=== PATIENT | female | born 1980 | race African-American/Black ===

== ENCOUNTER 2018-07-12 12:11 | Emergency (ER) | payer OTHER ==
[2018-07-12 12:19] VITALS: BP 119/75; PULSE 74; TEMP 98; BMI 32.0
[2018-07-12] MEDS ORDERED: ACETAMINOPHEN 325 MG TABLET (FP) PO ONE (13:33)
--- NOTE | 2018-07-12 13:39 | PDOC ---
History of Present Illness - General Chief Complaint: Headache Stated Complaint: HEADACHE Time Seen by Provider: 07/12/18 13:11 History Source: Patient Exam Limitations: Physical Impairment - History of Present Illness Initial Comments: 07/12/18 13:37 brought in by mom for c/o fever on thrusday no fever since and c/o headahce , no headache now. pt has history of seizures takes keppra (last took this AM) no seizure activity. no sore throat no abd pain or diarrhea. Pt has multiple cavaties, poor dentition has to have many teeth extracted as per mom. Timing/Duration: reports: episodic Severity: Yes: mild Past History - Past Medical History Allergies/Adverse Reactions: Allergies Allergy/AdvReac Type Severity Reaction Status Date / Time No Known Allergies Allergy Verified 07/12/18 12:19 Home Medications: Ambulatory Orders levETIRAcetam [Keppra -] 1,500 mg PO BID 07/12/18 COPD: No Seizures: Yes - Suicide/Smoking/Psychosocial Hx Smoking History: Never smoked Neuro Specific PMHX - Complaint Specific PMHX Glaucoma: No Herniated Disk: No Laminectomy: No Migraine: No Multiple Sclerosis: No Neuropathy: No TIA: No Other Neuro History: seizure disorder Review of Systems - Review of Systems Able to Perform ROS?: Yes Is the patient limited Israeli proficient: No Constitutional: No: Symptoms Reported HEENTM: No: Symptoms Reported Respiratory: No: Symptoms reported Cardiac (ROS): No: Symptoms Reported ABD/GI: No: Symptoms Reported : No: Symptoms Reported Musculoskeletal: No: Symptoms Reported Integumentary: No: Symptoms Reported *Physical Exam - Vital Signs Last Vital Signs Temp Pulse Resp BP Pulse Ox 98 F 74 18 119/75 99 07/12/18 12:16 07/12/18 12:16 07/12/18 12:16 07/12/18 12:16 07/12/18 12:16 - Physical Exam General Appearance: Yes: Nourished, Appropriately Dressed HEENT: positive: EOMI, YENI, Normal ENT Inspection, TMs Normal, Pharynx Normal, Other (multiple missing teeth poor dentition,no abscess or evidence of infection to the gum ) Neck: positive: Supple Respiratory/Chest: positive: Lungs Clear, Normal Breath Sounds Cardiovascular: positive: Regular Rhythm, Regular Rate Musculoskeletal: positive: Normal Inspection Extremity: positive: Normal Capillary Refill, Normal Inspection, Normal Range of Motion Integumentary: positive: Normal Color, Dry, Warm Neurologic: positive: Alert, Normal Mood/Affect Medical Decision Making - Medical Decision Making 07/12/18 13:41 cc: c/o headache earlier this am no headache now mom concerned about possible dental infection no sore throat neg neck pain no rigididty FROM of the neck will give tylenol now strict follow up tomorrow with PMD at [facility] *DC/Admit/Observation/Transfer Diagnosis at time of Disposition: Worried well, Dental cavities - Discharge Dispostion Disposition: HOME Condition at time of disposition: Good - Referrals - Patient Instructions Additional Instructions: please follow with your doctor tomorrow or Friday if the symptoms continue or worsen drink pleanty of water to stay well hydrated return if any worsening symptoms - Post Discharge Activity
[2018-07-12] MEDS ORDERED: ACETAMINOPHEN 325 MG TABLET (FP) ONE (13:43)
== END 2018-07-12 13:55 | disposition home or self-care (01) ==
LOC: JERFT 12:11
DX: K02.9 Dental caries, unspecified (principal); G40.909 Epilepsy, unspecified, not intractable, without status epilepticus
CPT/HCPCS: 99281-25

== ENCOUNTER 2018-10-15 17:52 | Emergency (ER) | payer OTHER ==
[2018-10-15 18:24] VITALS: BP 136/80; PULSE 93; TEMP 97.8; BMI 31.1
--- NOTE | 2018-10-15 19:27 | PDOC ---
History of Present Illness - General Chief Complaint: Edema Stated Complaint: BOTH FOOT PAIN Time Seen by Provider: 10/15/18 19:13 History Source: Patient, Parent(s) (Mother) Exam Limitations: Clinical Condition - History of Present Illness Initial Comments: 10/15/18 19:23 HISTORY OF PRESENT ILLNESS: 37-year-old woman with past medical history of hydrocephalus, seizure disorder and autism spectrum disorder presents emergency department for evaluation of left leg swelling. Mother states the patient was admitted to [facility] for seizures. She was transferred to [facility] for a month and was transferred to [facility] where she spent another month prior to returning home on 09/29. Mother states the patient has been walking on the apartment without difficulty but has noticed that the right leg has become more swollen as time goes on. No recent travel or sick contacts. PAST MEDICAL HISTORY: Denies past medical history SURGICAL HISTORY: Denies ALLERGIES: No known drug allergies REVIEW OF SYSTEMS-Unable to obtain 2/2 pt condition PHYSICAL EXAM General Appearance: Well-appearing, appropriately dressed. No apparent distress , no intoxication. HEENT: EOMI, PERRLA, normal ENT inspection, normal voice, TMs normal, pharynx normal. No conjunctival pallor. No photophobia, scleral icterus. Neck: Supple. Trachea midline. No tenderness, rigidity, carotid bruit, stridor , lymphadenopathy, or thyromegaly. Respiratory/Chest: Lungs CTAB. No shortness of breath, chest tenderness, respiratory distress, accessory muscle use. No crackles, rales, rhonchi, stridor , wheezing, dullness Cardiovascular: RRR. S1, S2. No JVD, murmur, bradycardia, tachycardia. Vascular Pulses: Dorsalis-Pedis (R): 2+, Dorsalis-Pedis (L): 2+ Gastrointestinal/Abdominal: Normal bowel sounds. Abdomen soft, non-distended. No tenderness or rebound tenderness. No organomegaly, pulsatile mass, guarding, hernia, hepatomegaly, splenomegaly. Lymphatic: No adenopathy, tenderness. Musculoskeletal/Extremities: Normal inspection. FROM of all extremities, normal capillary refill. Pelvis Stable. No CVA tenderness. No tenderness to extremities, erythema or deformity. Right lower extremity swollen compared to the right. No palpable cords or tenderness to the calf present. Integumentary: Appropriate color, dry, warm. No cyanosis, erythema, jaundice or rash Neurologic: tonsorial artist II-XII intact. Fully oriented, alert. Appropriate mood/affect. Motor strength 5/5. No appreciable EOM palsy, facial droop or sensory deficit. Past History - Past Medical History Allergies/Adverse Reactions: Allergies Allergy/AdvReac Type Severity Reaction Status Date / Time No Known Allergies Allergy Verified 07/12/18 12:19 Home Medications: Ambulatory Orders levETIRAcetam [Keppra -] 1,500 mg PO BID 07/12/18 COPD: No Seizures: Yes - Immunization History Immunization Up to Date: Yes - Suicide/Smoking/Psychosocial Hx Smoking History: Never smoked Hx Alcohol Use: No Drug/Substance Use Hx: No *Physical Exam - Vital Signs Last Vital Signs Temp Pulse Resp BP Pulse Ox 97.8 F 93 H 17 136/80 100 10/15/18 18:20 10/15/18 18:20 10/15/18 18:20 10/15/18 18:20 10/15/18 18:20 Moderate Sedation - Procedure Monitoring Vital Signs: Procedure Monitoring Vital Signs Temperature 97.8 F 10/15/18 18:20 Pulse Rate 93 H 10/15/18 18:20 Respiratory Rate 17 10/15/18 18:20 Blood Pressure 136/80 10/15/18 18:20 O2 Sat by Pulse Oximetry (%) 100 10/15/18 18:20 ED Treatment Course - RADIOLOGY Radiology Studies Ordered: Category Date Time Status DUPLEX VASCUL US-1 LEG [US] Stat Ultrasound 10/15/18 19:22 Ordered Medical Decision Making - Medical Decision Making 10/15/18 19:26 A/P: 37-year-old female with left leg swelling Right lower extremity swollen without erythema. No palpable cords or calf tenderness noted Negative Homans sign Lungs clear to auscultation bilaterally RRR. No murmur, rub or gallop Ultrasound to rule out DVT Reassess 10/15/18 20:54 Ultrasound as read by Dr. Lepe: No DVT is identified involving the right leg. No obvious superficial thrombophlebitis is noted. There is no obvious popliteal cyst. I discussed the physical exam findings, ancillary test results and final diagnoses with the patient. I answered all of the patient's questions. The patient was satisfied with the care received and felt comfortable with the discharge plan and treatment plan. The patient will call their primary care physician within 24 hours to arrange follow-up and will return to the Emergency Department with any new, persistent or worsening symptoms. *DC/Admit/Observation/Transfer Diagnosis at time of Disposition: Dependent edema - Discharge Dispostion Disposition: HOME Condition at time of disposition: Stable Decision to Admit order: No - Referrals - Patient Instructions Additional Instructions: Follow up with your doctor as previously scheduled. Return to ED for any concerns. - Post Discharge Activity
== END 2018-10-15 21:09 | disposition home or self-care (01) ==
LOC: JERFT 17:52
DX: R60.0 Localized edema (principal); G40.909 Epilepsy, unspecified, not intractable, without status epilepticus; F84.0 Autistic disorder; G91.9 Hydrocephalus, unspecified
CPT/HCPCS: 93971-TC; 99281-25

== ENCOUNTER 2018-11-04 23:08 | Emergency (ER) | payer OTHER ==
[2018-11-05 01:02] VITALS: BP 129/77; PULSE 78; TEMP 97.7; BMI 32.0
--- NOTE | 2018-11-05 01:32 | PDOC ---
History of Present Illness - General Stated Complaint: SEIZURES Time Seen by Provider: 11/05/18 01:32 Past History - Past Medical History Allergies/Adverse Reactions: Allergies Allergy/AdvReac Type Severity Reaction Status Date / Time No Known Allergies Allergy Verified 07/12/18 12:19 Home Medications: Ambulatory Orders levETIRAcetam [Keppra -] 1,500 mg PO BID 07/12/18 Lacosamide [Vimpat] 200 mg PO Q12H 11/05/18 Phenytoin 50 mg PO BID 11/05/18 Quetiapine Fumarate [Seroquel -] 25 mg PO HS 11/05/18 COPD: No Seizures: Yes - Immunization History Immunization Up to Date: Yes - Suicide/Smoking/Psychosocial Hx Smoking History: Never smoked Have you smoked in the past 12 months: No Information on smoking cessation initiated: No Hx Alcohol Use: No Drug/Substance Use Hx: No *Physical Exam - Vital Signs Last Vital Signs Temp Pulse Resp BP Pulse Ox 97.7 F 78 19 129/77 98 11/04/18 23:56 11/04/18 23:56 11/04/18 23:56 11/04/18 23:56 11/04/18 23:56 Moderate Sedation - Procedure Monitoring Vital Signs: Procedure Monitoring Vital Signs Temperature 97.7 F 11/04/18 23:56 Pulse Rate 78 11/04/18 23:56 Respiratory Rate 19 11/04/18 23:56 Blood Pressure 129/77 11/04/18 23:56 O2 Sat by Pulse Oximetry (%) 98 11/04/18 23:56 ED Treatment Course - LABORATORY CBC & Chemistry Diagram: 11/05/18 04:35 11/05/18 04:35 *DC/Admit/Observation/Transfer Diagnosis at time of Disposition: Seizure - Discharge Dispostion Disposition: HOME Condition at time of disposition: Improved Decision to Admit order: No - Referrals Referrals: bobo martinez [Other] - Patient Instructions Printed Discharge Instructions: DI for Seizure Disorder -- Adult Additional Instructions: Please continue your regular medications. Please follow up with your neurologist to have your medications re-evaluted. Please return to the ED if you have new or worsening symptoms. - Post Discharge Activity
--- NOTE | 2018-11-05 01:37 | PDOC ---
Attending Attestation - Resident Resident Name: Adriana Mabry - ED Attending Attestation I have performed the following: I have examined & evaluated the patient, The case was reviewed & discussed with the resident, I agree w/resident's findings & plan - HPI HPI: 11/05/18 05:15 37-year-old female with lifelong history of seizures brought in by her family member after witnessed seizure at home. Patient is status post recent admission to a [facility]. This seizure this evening involve the right upper extremity and right face, similar to previous. - Physicial Exam PE: 11/05/18 05:35 Agree with resident's exam - Medical Decision Making 11/05/18 05:37 Patient has not had further seizure activity while in the emergency department currently at her baseline with no additional complaints Plan for discharge home pending labs Follow up with her regular neurologist
[2018-11-05 05:29] LABS: BASO % 0.1 % (0-2.0); HEMATOCRIT 36.5 % (32.4-45.2); LYMPH % 22.1 % (8-40); MCH 25.6 pg (25.7-33.7); MEAN CELL VOLUME 77.5 fl (80-96); MEAN PLT VOLUME 8.9 fl (7.5-11.1); MONO % 5.3 % (3.8-10.2); NEUT % 72.5 % (42.8-82.8); PLATELET COUNT 405 K/MM3 (134-434); RBC 4.71 M/mm3 (3.60-5.2); RDW 14.9 % (11.6-15.6); WHITE BLOOD COUNT 7.4 K/mm3 (4.0-10.0)
[2018-11-05 05:30] LABS: ALBUMIN 3.7 g/dl (3.4-5.0); ALK PHOS 209 U/L (45-117); ANION GAP 5 MMOL/L (8-16); BILIRUBIN,TOTAL 0.2 mg/dL (0.2-1); BLOOD UREA NITROGEN 11 mg/dL (7-18); CALCIUM 8.6 mg/dL (8.5-10.1); CHLORIDE 106 mmol/L (98-107); CO2 27 mmol/L (21-32); CREATININE 0.8 mg/dL (0.55-1.3); GLUCOSE,RANDOM 110 mg/dL (74-106); POTASSIUM 3.7 mmol/L (3.5-5.1); SGOT/AST 19 U/L (15-37); SGPT/ALT 27 U/L (13-61); SODIUM 139 mmol/L (136-145); TOT PROT 8.1 g/dl (6.4-8.2)
[2018-11-05] MEDS ORDERED: ACETAMINOPHEN 500 MG TABLET (FP) PO ONE (07:23)
[2018-11-05] MEDS ORDERED: ACETAMINOPHEN 325 MG TABLET (FP) ONE (07:24)
== END 2018-11-05 08:12 | disposition home or self-care (01) ==
LOC: JER 23:08
DX: R56.9 Unspecified convulsions (principal)
CPT/HCPCS: 36415; 80053; 80177; 80185; 85025; 99283-25; G0480

== ENCOUNTER 2019-01-11 15:34 | Emergency (ER) | payer OTHER ==
[2019-01-11 16:10] VITALS: TEMP 98.4; BMI 25.0
--- NOTE | 2019-01-11 16:11 | PDOC ---
Rapid Medical Evaluation Time Seen by Provider: 01/11/19 16:06 Medical Evaluation: Allergies Allergy/AdvReac Type Severity Reaction Status Date / Time No Known Allergies Allergy Verified 07/12/18 12:19 01/11/19 16:06 I have performed a brief in-person evaluation of this patient The patient present with a chief complaint of: frequent falls. As per mother patient fell 2 times in 2 weeks. Mother states when she fell on Friday it appeared that she loss her balance. She was found in the bathtub Pertinent physical exam findings: NAD HEENT: neck supple, no bruising noted even and unlabored breathing I have ordered the following: The patient will proceed to the ED for further evaluation. Discharge Disposition - Diagnosis Frequent falls - Referrals - Patient Instructions - Post Discharge Activity
--- NOTE | 2019-01-11 17:13 | PDOC ---
History of Present Illness - General Chief Complaint: Seizure Stated Complaint: WEAKNESS Time Seen by Provider: 01/11/19 16:06 History Source: Patient, Parent(s) (MOTHER) Exam Limitations: No Limitations - History of Present Illness Initial Comments: 01/11/19 18:00 38-year-old female presents to ED for evaluation of 4 falls and trips over the past 3 months which mother states may be related to her dosage change 3 months ago of her Vimpat. Patient has no complaints presently. Mother denies any change in behavior increased seizure activity, or lethargy. Mother also states unsure if trips and falls are related to contractures to the right side . Patient with history of seizure, premature , hydrocephalus, mental retardation Timing/Duration: intermittent Severity: mild Associated Symptoms: reports: other (4 falls ) Past History - Travel Traveled outside of the country in the last 30 days: No Close contact w/someone who was outside of country & ill: No - Past Medical History Allergies/Adverse Reactions: Allergies Allergy/AdvReac Type Severity Reaction Status Date / Time No Known Allergies Allergy Verified 01/11/19 16:12 Home Medications: Ambulatory Orders levETIRAcetam [Keppra -] 1,500 mg PO BID 07/12/18 Lacosamide [Vimpat] 200 mg PO Q12H #28 tablet MDD 2 tabs 11/05/18 Lacosamide [Vimpat] 200 mg PO Q12H #60 tablet MDD 2 tabs 11/05/18 Phenytoin 50 mg PO BID 11/05/18 COPD: No Seizures: Yes - Immunization History Immunization Up to Date: Yes - Suicide/Smoking/Psychosocial Hx Smoking History: Never smoked Have you smoked in the past 12 months: No Information on smoking cessation initiated: No Hx Alcohol Use: No Drug/Substance Use Hx: No Patient Lives Alone: No Lives with/in: parents Review of Systems - Review of Systems Able to Perform ROS?: No Is the patient limited Solomon Islander proficient: No Constitutional: No: Symptoms Reported HEENTM: No: Symptoms Reported Respiratory: No: Symptoms reported Cardiac (ROS): No: Symptoms Reported ABD/GI: No: Symptoms Reported : No: Symptoms Reported Musculoskeletal: No: Symptoms Reported Integumentary: No: Symptoms Reported Neurological: Yes: Other (4 fall/trips) Hematologic/Lymphatic: No: Symptoms Reported *Physical Exam - Vital Signs Last Vital Signs Temp Pulse Resp BP Pulse Ox 98.4 F 83 18 165/100 100 01/11/19 15:59 01/11/19 15:59 01/11/19 15:59 01/11/19 15:59 01/11/19 15:59 - Physical Exam General Appearance: Yes: Nourished, Appropriately Dressed. No: Apparent Distress HEENT: positive: EOMI, YENI, TMs Normal, Pharynx Normal. negative: Pale Conjunctivae Neck: positive: Supple Respiratory/Chest: positive: Lungs Clear, Normal Breath Sounds. negative: Respiratory Distress, Accessory Muscle Use Cardiovascular: positive: Regular Rhythm, Regular Rate. negative: Murmur Gastrointestinal/Abdominal: positive: Soft. negative: Tenderness Extremity: positive: Normal Capillary Refill. negative: Pedal Edema Integumentary: positive: Normal Color, Warm, Moist Neurologic: positive: Motor Strength 5/5 (ambulatory) ED Treatment Course - LABORATORY CBC & Chemistry Diagram: 01/11/19 17:30 01/11/19 17:30 Medical Decision Making - Medical Decision Making 01/11/19 17:07 Complaint: Patient status post fall or trip over the past 3 months. Mother unsure if related to seizure medication or due to patient's baseline of an unsteady gait due to right sided weakness. Patient has no complaints presently. Patient's appointment the GP in 2 days and neurologist next month Exam: Vital signs stable. No neuro focal deficits except for mild contraction of the right hand which mother states is baseline Plan: CBC, comp, urine urine along with Dilantin , keppra, and vimpat levels 01/11/19 18:44 Laboratory Tests 01/11/19 01/11/19 01/11/19 17:30 17:30 17:30 WBC 5.9 Hgb 11.8 Hct 37.8 MCV 73.8 L MCH 23.1 L MCHC 31.3 L RDW 16.0 H Plt Count 332 MPV 8.1 Absolute Neuts (auto) 3.6 Lymphocytes % 28.8 D Monocytes % 9.8 D Eosinophils % 0.0 Basophils % 0.1 Nucleated RBC % 0 Sodium 135 L Potassium 3.7 Chloride 103 Carbon Dioxide 26 Anion Gap 6 L BUN 12 Creatinine 0.9 Random Glucose 106 Calcium 8.4 L Total Bilirubin 0.1 L AST 14 L Alkaline Phosphatase 171 H Total Protein 8.4 H Albumin 3.9 Lacosamide Level Pending Levetiracetam Pending 01/11/19 18:44Patient will be given copy of labs to take with her to her GP for Wednesdays appointment 01/12/19 14:19 Laboratory Tests 01/11/19 17:30 Urine Ketones Negative Urine Blood Trace-intact Urine Nitrite Negative Urine Bilirubin Negative Ur Leukocyte Esterase Negative *DC/Admit/Observation/Transfer Diagnosis at time of Disposition: Frequent falls - Discharge Dispostion Disposition: HOME Condition at time of disposition: Good - Referrals - Patient Instructions Printed Discharge Instructions: How to Prevent Falls Additional Instructions: bring copy of your labs with you to your physician. You may call Friday to see if the other lab results have been resulted - Post Discharge Activity Forms/Work/School Notes: Back to School
[2019-01-11 17:39] LABS: BASO % 0.1 % (0-2.0); HEMATOCRIT 37.8 % (32.4-45.2); HEMOGLOBIN 11.8 GM/dL (10.7-15.3); LYMPH % 28.8 % (8-40); MCH 23.1 pg (25.7-33.7); MCHC 31.3 g/dl (32.0-36.0); MEAN CELL VOLUME 73.8 fl (80-96); MEAN PLT VOLUME 8.1 fl (7.5-11.1); MONO % 9.8 % (3.8-10.2); NEUT % 61.3 % (42.8-82.8); PLATELET COUNT 332 K/MM3 (134-434); RBC 5.12 M/mm3 (3.60-5.2); WHITE BLOOD COUNT 5.9 K/mm3 (4.0-10.0)
[2019-01-11 18:10] LABS: ALBUMIN 3.9 g/dl (3.4-5.0); ALK PHOS 171 U/L (45-117); ANION GAP 6 MMOL/L (8-16); BILIRUBIN,TOTAL 0.1 mg/dL (0.2-1); BLOOD UREA NITROGEN 12 mg/dL (7-18); CALCIUM 8.4 mg/dL (8.5-10.1); CHLORIDE 103 mmol/L (98-107); CO2 26 mmol/L (21-32); CREATININE 0.9 mg/dL (0.55-1.3); GLUCOSE,RANDOM 106 mg/dL (74-106); POTASSIUM 3.7 mmol/L (3.5-5.1); SGOT/AST 14 U/L (15-37); SGPT/ALT 22 U/L (13-61); SODIUM 135 mmol/L (136-145); TOT PROT 8.4 g/dl (6.4-8.2)
[2019-01-11 19:10] VITALS: BP 139/71; PULSE 89
[2019-01-11 22:06] LABS: PH,URINE 6.5 (5.0-8.0); URINE APPEARANCE Clear; URINE BILIRUBIN Negative (NEGATIVE); URINE COLOR Yellow; URINE GLUCOSE (UA) Negative (NEGATIVE); URINE KETONE Negative (NEGATIVE); URINE LEUK ESTERASE Negative (NEGATIVE); URINE NITRITE Negative (NEGATIVE); URINE PROTEIN Negative (NEGATIVE); URINE UROBILINOGEN 0.2 mg/dL (0.2-1.0)
== END 2019-01-11 19:47 | disposition home or self-care (01) ==
LOC: JER 15:34
DX: R26.89 Other abnormalities of gait and mobility (principal); R29.6 Repeated falls; Z91.81 History of falling; G40.802 Other epilepsy, not intractable, without status epilepticus; F79 Unspecified intellectual disabilities; M62.81 Muscle weakness (generalized)
CPT/HCPCS: 36415; 80053; 80177; 80185; 81003; 85025; 87077; 87086; 99282-25; G0480

== ENCOUNTER 2019-04-04 23:22 | Emergency (ER) | payer OTHER ==
[2019-04-04 23:50] VITALS: BMI 32.0
--- NOTE | 2019-04-04 23:59 | PDOC ---
History of Present Illness - General Chief Complaint: Seizure Stated Complaint: SEIZURE - History of Present Illness Initial Comments: The pt is a 38F w/ a history of developmental delay and seizure d/o who presents for evaluation s/p witnessed seizure tonight. The mother reports that the seizure began at approximately 2100, the pt received extra Keppra 750mg PO at 2108 by family, and the mother reports seizure-like activity for 3 hours. The pt is noted to have seizures lasting up to 30min in the past, the last was early 02/2019. The seizure is described as RUE posturing and nystagmus. The family and pt deny fevers/chills, nausea/vomiting, chest pain, dysuria, hematuria, diarrhea, and no blood in her stool. 04/05/19 00:22 Past History - Past Medical History Allergies/Adverse Reactions: Allergies Allergy/AdvReac Type Severity Reaction Status Date / Time No Known Allergies Allergy Verified 04/04/19 23:50 Home Medications: Ambulatory Orders levETIRAcetam [Keppra -] 1,500 mg PO BID 07/12/18 Lacosamide [Vimpat] 200 mg PO Q12H #28 tablet MDD 2 tabs 11/05/18 Lacosamide [Vimpat] 200 mg PO Q12H #60 tablet MDD 2 tabs 11/05/18 Phenytoin 50 mg PO BID 11/05/18 COPD: No Seizures: Yes - Immunization History Immunization Up to Date: Yes - Suicide/Smoking/Psychosocial Hx Smoking History: Never smoked Have you smoked in the past 12 months: No Hx Alcohol Use: No Drug/Substance Use Hx: No Review of Systems - Review of Systems Able to Perform ROS?: Yes Comments:: GENERAL/CONSTITUTIONAL: No fever. No weakness HEAD, EYES, EARS, NOSE AND THROAT: No change in vision. No sore throat CARDIOVASCULAR: No chest pain RESPIRATORY: Denies cough GASTROINTESTINAL: No nausea, vomiting, diarrhea or constipation GENITOURINARY: No dysuria SKIN: No rash NEUROLOGIC: No headache ENDOCRINE: No abnormal weight change HEMATOLOGIC/LYMPHATIC: No anemia, easy bleeding ALLERGIC/IMMUNOLOGIC: No hives or skin allergy 04/04/19 23:58 Is the patient limited [place] Citizen proficient: No *Physical Exam - Vital Signs Last Vital Signs Temp Pulse Resp BP Pulse Ox 97.6 F 77 18 143/89 100 04/04/19 23:48 04/04/19 23:48 04/04/19 23:48 04/04/19 23:48 04/04/19 23:48 - Physical Exam Comments: GENERAL: Awake, alert, and oriented to person, in no acute distress HEAD: No signs of trauma, normocephalic, atraumatic EYES: PERRLA, EOMI, sclera anicteric, conjunctiva clear ENT: Hearing grossly normal, nares patent, oropharynx clear without exudates. No uvular deviation. Moist mucosa LUNGS: No distress, speaks in full sentences, clear to auscultation bilaterally HEART: Regular rate and rhythm, normal S1 and S2, no murmurs appreciated, peripheral pulses normal and equal bilaterally ABDOMEN: Soft, nontender, normoactive bowel sounds. No guarding, no rebound EXTREMITIES: Normal inspection, Normal range of motion, no edema NEUROLOGICAL: Cranial nerves II through XII grossly intact. Speaks in single words, no focal sensorimotor deficits, follows simple commands SKIN: Warm, Dry 04/04/19 23:58 ED Treatment Course - LABORATORY CBC & Chemistry Diagram: 04/05/19 01:10 04/05/19 01:10 Medical Decision Making - Medical Decision Making The pt is a 38F w/ a history of developmental delay, s/p VPS, and seizure d/o who presents for evaluation s/p seizure ED Course CMP, CBC, UA, UCx CT head 04/05/19 00:30 No anemia No leukocytosis Remainder of labs pending CT head pending If all results unremarkable, will plan for D/C w/ neurology f/u -Pt follows up at [facility] Pt signed out to night team *DC/Admit/Observation/Transfer Diagnosis at time of Disposition: Seizure - Discharge Dispostion Condition at time of disposition: Stable - Referrals - Patient Instructions Printed Discharge Instructions: DI for Seizure Disorder -- Adult - Post Discharge Activity
[2019-04-05 01:19] LABS: BASO % 0.1 % (0-2.0); HEMOGLOBIN 11.6 GM/dL (10.7-15.3)
[2019-04-05 01:27] LABS: HEMATOCRIT 37.3 % (32.4-45.2); LYMPH % 45.8 % (8-40); MCH 23.5 pg (25.7-33.7); MCHC 31.1 g/dl (32.0-36.0); MEAN CELL VOLUME 75.7 fl (80-96); MEAN PLT VOLUME 8.2 fl (7.5-11.1); MONO % 11.2 % (3.8-10.2); NEUT % 42.9 % (42.8-82.8); PLATELET COUNT 337 K/MM3 (134-434); RBC 4.92 M/mm3 (3.60-5.2); RDW 16.7 % (11.6-15.6); WHITE BLOOD COUNT 5.5 K/mm3 (4.0-10.0)
[2019-04-05 01:48] LABS: ALBUMIN 3.6 g/dl (3.4-5.0); BILIRUBIN,TOTAL 0.2 mg/dL (0.2-1); BLOOD UREA NITROGEN 9.7 mg/dL (7-18); CALCIUM 8.4 mg/dL (8.5-10.1); POTASSIUM 3.8 mmol/L (3.5-5.1); TOT PROT 7.8 g/dl (6.4-8.2)
--- NOTE | 2019-04-05 02:04 | PDOC ---
Documentation entered by Sadie Martinez SCRIBE, acting as scribe for Anastasiya Quintero MD. Anastasiya Quintero MD: This documentation has been prepared by the Michelle nova Sammi, SCRIBE, under my direction and personally reviewed by me in its entirety. I confirm that the documentation accurately reflects all work, treatment, procedures, and medical decision making performed by me. 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 As per the mom at bedside, the patient began seizing at 9pm tonight and lasted about 3 hours. She notes the patient took their Keppra at 9: 08. Last seizure noted in February. Mom states the patients seizure like activity was localized to the right upper extremity and right face. - Physicial Exam PE: 04/05/19 01:49 GENERAL: Well developed, well nourished. She is sleepy but arousable HEENT: voluntarily holding her eyes tight Normocephalic, atraumatic. PERRLA, EOMI. No conjunctival pallor. Sclera are non- icteric. Moist mucous membranes. Oropharynx is clear.There is no tongue trauma NECK: Supple. Full ROM. No JVD. Carotid pulses 2+ and symmetric, without bruits. No thyromegaly. No lymphadenopathy. CARDIOVASCULAR: Regular rate and rhythm. No murmurs, rubs, or gallops. Distal pulses are 2+ and symmetric. PULMONARY: No evidence of respiratory distress. Lungs clear to auscultation bilaterally. No wheezing, rales or rhonchi. ABDOMINAL: Soft. Non-tender. Non-distended. No rebound or guarding. No organomegaly. Normoactive bowel sounds. MUSCULOSKELETAL Normal range of motion at all joints. No bony deformities or tenderness. No CVA tenderness. EXTREMITIES: No cyanosis. No clubbing. No edema. No calf tenderness. SKIN: Warm and dry. Normal capillary refill. No rashes. No jaundice. NEUROLOGICAL: pt has a chronic cognitive deficit, she is oriented to her name and this is her baseline .She can move all her extremities 04/05/19 01:58 - Medical Decision Making 04/05/19 02:[address] scan head,labs pt already loaded w extra keppra prior to arrival If her imaging and labs are unremarkable, consider d/c home w neurology followup
[2019-04-05 03:13] LABS: PH,URINE 7.5 (5.0-8.0); URINE APPEARANCE CLEAR; URINE BILIRUBIN NEGATIVE (NEGATIVE); URINE COLOR YELLOW; URINE GLUCOSE (UA) NEGATIVE (NEGATIVE); URINE KETONE NEGATIVE (NEGATIVE); URINE LEUK ESTERASE NEGATIVE (NEGATIVE); URINE NITRITE NEGATIVE (NEGATIVE); URINE PROTEIN NEGATIVE (NEGATIVE); URINE UROBILINOGEN 0.2 mg/dL (0.2-1.0)
--- NOTE | 2019-04-05 04:19 | PDOC ---
*Physical Exam - Vital Signs Last Vital Signs Temp Pulse Resp BP Pulse Ox 97.6 F 77 18 143/89 100 04/04/19 23:48 04/04/19 23:48 04/04/19 23:48 04/04/19 23:48 04/04/19 23:48 - Physical Exam Comments: 04/05/19 04:16 Patient's care was endorsed to me by Dr. Castillo at the end of his shift. Patient is a 38YOF with h/o developmental delay and seizure disorder who had an apparent seizure today. Labs unremarkable, pending head CT then dispo decision. ED Treatment Course - LABORATORY CBC & Chemistry Diagram: 04/05/19 01:10 04/05/19 01:10 - ADDITIONAL ORDERS Additional order review: Laboratory Results 04/05/19 04/05/19 04/05/19 03:00 01:10 01:10 WBC 5.5 RBC 4.92 Hgb 11.6 Hct 37.3 MCV 75.7 L MCH 23.5 L MCHC 31.1 L RDW 16.7 H Plt Count 337 MPV 8.2 Absolute Neuts (auto) 2.4 Neutrophils % 42.9 D Lymphocytes % 45.8 H D Monocytes % 11.2 H Eosinophils % 0.0 Basophils % 0.1 Nucleated RBC % 0 Sodium 138 Potassium 3.8 Chloride 105 Carbon Dioxide 28 Anion Gap 5 L BUN 9.7 Creatinine 1.0 Est GFR (CKD-EPI)AfAm 83.94 Est GFR (CKD-EPI)NonAf 72.42 Random Glucose 135 H Calcium 8.4 L Total Bilirubin 0.2 AST 13 L ALT 24 Alkaline Phosphatase 184 H Total Protein 7.8 Albumin 3.6 Urine Color Yellow Urine Appearance Clear Urine pH 7.5 Ur Specific [place] 1.010 Urine Protein Negative Urine Glucose (UA) Negative Urine Ketones Negative Urine Blood Negative Urine Nitrite Negative Urine Bilirubin Negative Urine Urobilinogen 0.2 Ur Leukocyte Esterase Negative 04/05/19 01:10 RBC 4.92 MCV 75.7 L MCHC 31.1 L RDW 16.7 H MPV 8.2 Neutrophils % 42.9 D Lymphocytes % 45.8 H D Monocytes % 11.2 H Eosinophils % 0.0 Basophils % 0.1 Medical Decision Making - Medical Decision Making 04/05/19 04:18 All patient data reviewed. Initial Vital Signs Temp Pulse Resp BP Pulse Ox 97.6 F 77 18 143/89 100 04/04/19 23:48 04/04/19 23:48 04/04/19 23:48 04/04/19 23:48 04/04/19 23:48 Laboratory Tests 04/05/19 04/05/19 04/05/19 01:10 01:10 03:00 WBC 5.5 RBC 4.92 Hgb 11.6 Hct 37.3 MCV 75.7 L MCH 23.5 L MCHC 31.1 L RDW 16.7 H Plt Count 337 MPV 8.2 Absolute Neuts (auto) 2.4 Neutrophils % 42.9 D Lymphocytes % 45.8 H D Monocytes % 11.2 H Eosinophils % 0.0 Basophils % 0.1 Nucleated RBC % 0 Sodium 138 Potassium 3.8 Chloride 105 Carbon Dioxide 28 Anion Gap 5 L BUN 9.7 Creatinine 1.0 Est GFR (CKD-EPI)AfAm 83.94 Est GFR (CKD-EPI)NonAf 72.42 Random Glucose 135 H Calcium 8.4 L Total Bilirubin 0.2 AST 13 L ALT 24 Alkaline Phosphatase 184 H Total Protein 7.8 Albumin 3.6 Urine Color Yellow Urine Appearance Clear Urine pH 7.5 Ur Specific [place] 1.010 Urine Protein Negative Urine Glucose (UA) Negative Urine Ketones Negative Urine Blood Negative Urine Nitrite Negative Urine Bilirubin Negative Urine Urobilinogen 0.2 Ur Leukocyte Esterase Negative Head CT: Nothing acute. Tylenol given at patient's request for mild headache. On last reassessment, vitals are wnl, pain is reasonably controlled, and exam is benign. Workup is not concerning for emergency-level pathology at this time. This patient is appropriate for discharge with close outpatient follow up. The family is comfortable with this plan and will follow up with their PCP in 1- 3 days. They agree to return to the ED with any new/worsening symptoms. Specific return precautions are discussed and they will come back to the ER if necessary. *DC/Admit/Observation/Transfer Diagnosis at time of Disposition: Seizure - Discharge Dispostion Condition at time of disposition: Stable Decision to Admit order: No - Referrals - Patient Instructions Printed Discharge Instructions: DI for Seizure Disorder -- Adult Additional Instructions: You were seen in the ER for a seizure. We did an exam, imaging studies, labs, and an electrocardiogram, and we did not find any new concerning abnormalities. After our assessment, we do not believe you are having a medical emergency at this time, and we believe you are safe to go home. Please continue to take your seizure medications as prescribed because if you do not, you are at higher risk for having seizures which can put you in danger of serious accidents and other complications. Avoid triggers that may cause or worsen your seizures such as alcohol, drugs, dehydration, fasting, lack of sleep, or intensely stressful situations. Please follow up with your regular PCP doctor, neurologist, or the doctor who follows you for your seizure disorder, in 1-3 days. Call their clinic , tell them you were seen in the er, and tell them you need a follow-up. If you have any new or worsening symptoms, please come back to the ER at any time (24 hours a day). If you are having severe or life threatening symptoms, or symptoms that make it unsafe to drive or have someone drive you, please call 911. - Post Discharge Activity
[2019-04-05 05:02] VITALS: BP 111/75; PULSE 72; TEMP 98
[2019-04-05] MEDS ORDERED: ACETAMINOPHEN 500 MG TABLET (FP) PO ONE (05:02)
[2019-04-05] MEDS ORDERED: ACETAMINOPHEN 325 MG TABLET (FP) ONE (05:06)
== END 2019-04-05 05:24 | disposition home or self-care (01) ==
LOC: JER 23:22
DX: G40.909 Epilepsy, unspecified, not intractable, without status epilepticus (principal); R51 Headache; R62.59 Other lack of expected normal physiological development in childhood; Z98.2 Presence of cerebrospinal fluid drainage device
CPT/HCPCS: 36415; 70450-TC; 80053; 81003; 85025; 87086; 99282-25

== ENCOUNTER 2021-01-31 22:22 | Emergency (ER) | payer OTHER ==
[2021-01-31 22:47] VITALS: BP 122/92; PULSE 73; TEMP 97.8; BMI 32.1
[2021-01-31] MEDS ORDERED: levETIRAcetam 250 MG TABLET PO ONE (23:18)
[2021-01-31] MEDS ORDERED: LACOSAMIDE 50 MG TABLET PO ONE ×2 (23:18→23:40)
[2021-01-31] MEDS ORDERED: PHENYTOIN 50 MG TAB.CHEW PO ONE (23:20)
[2021-01-31] MEDS ORDERED: levETIRAcetam 500 MG TABLET (FP) PO ONE (23:40)
[2021-01-31 23:47] LABS: BASO % 0.2 % (0-2.0); HEMATOCRIT 40.8 % (32.4-45.2); HEMOGLOBIN 13.8 GM/dL (10.7-15.3); LYMPH % 13.6 % (8-40); MCH 28.7 pg (25.7-33.7); MCHC 33.9 g/dl (32.0-36.0); MEAN CELL VOLUME 84.5 fl (80-96); MEAN PLT VOLUME 9.1 fl (7.5-11.1); MONO % 7.3 % (3.8-10.2); NEUT % 78.9 % (42.8-82.8); PLATELET COUNT 279 K/MM3 (134-434); RBC 4.83 M/mm3 (3.60-5.2); RDW 15.5 % (11.6-15.6); WHITE BLOOD COUNT 9.1 K/mm3 (4.0-10.0)
[2021-01-31] MEDS ORDERED: ACETAMINOPHEN 325 MG TABLET (FP) PO ONE (23:57)
[2021-02-01] MEDS ORDERED: ACETAMINOPHEN 325 MG TABLET (FP) ONE (00:13)
[2021-02-01 00:15] LABS: CALCIUM 8.8 mg/dL (8.5-10.1)
[2021-02-01 00:16] LABS: ALBUMIN 3.6 g/dl (3.4-5.0); BLOOD UREA NITROGEN 10.8 mg/dL (7-18)
[2021-02-01 00:19] LABS: CREATININE 0.8 mg/dL (0.55-1.3)
[2021-02-01 00:20] LABS: BILIRUBIN,TOTAL 0.2 mg/dL (0.2-1); TOT PROT 7.9 g/dl (6.4-8.2)
[2021-02-02 11:08] LABS: SARS-CoV-2 NAA Not Detected (Not Detected)
== END 2021-02-01 02:56 | disposition home or self-care (01) ==
LOC: JER 22:22
DX: G40.89 Other seizures (principal)
CPT/HCPCS: 36415; 80053; 80177; 80185; 85025; 99283-25; C9803; G0480; U0003; U0005

== ENCOUNTER 2021-03-06 11:32 | Inpatient (IN) | payer OTHER ==
[2021-03-06 17:46] VITALS: BMI 32.1
[2021-03-06] MEDS ORDERED: ACETAMINOPHEN 500 MG TABLET (FP) PO PRN (21:03)
[2021-03-06] MEDS ORDERED: LORazepam 2 MG/ML SDV VIAL IVPUSH PRN (21:05)
[2021-03-06] MEDS: PHENYTOIN NA EXTENDED 100 MG CAPSULE (FP) PO SCH (21:43)
[2021-03-06] MEDS: LACOSAMIDE 50 MG TABLET PO SCH (21:43)
[2021-03-06] MEDS: levETIRAcetam 250 MG TABLET PO SCH (21:44)
[2021-03-06 22:07] LABS: HEMATOCRIT 37.1 % (32.4-45.2); HEMOGLOBIN 12.5 GM/dL (10.7-15.3); MCH 28.3 pg (25.7-33.7); MCHC 33.7 g/dl (32.0-36.0); MEAN CELL VOLUME 84.1 fl (80-96); MEAN PLT VOLUME 8.7 fl (7.5-11.1); PLATELET COUNT 299 K/MM3 (134-434); RBC 4.41 M/mm3 (3.60-5.2); RDW 15.2 % (11.6-15.6); WHITE BLOOD COUNT 5.6 K/mm3 (4.0-10.0)
[2021-03-06 22:36] LABS: ALBUMIN 3.1 g/dl (3.4-5.0); BLOOD UREA NITROGEN 13.7 mg/dL (7-18); CALCIUM 8.3 mg/dL (8.5-10.1)
[2021-03-06 22:39] LABS: BILIRUBIN,DIRECT 0.1 mg/dL (0.0-0.2); CREATININE 0.8 mg/dL (0.55-1.3)
[2021-03-06 22:41] LABS: BILIRUBIN,TOTAL 0.2 mg/dL (0.2-1)
[2021-03-07] MEDS: levETIRAcetam 250 MG TABLET PO SCH ×2 (09:38→21:21)
[2021-03-07] MEDS: LACOSAMIDE 50 MG TABLET PO SCH ×2 (09:38→21:21)
[2021-03-07] MEDS: PHENYTOIN NA EXTENDED 100 MG CAPSULE (FP) PO SCH ×2 (09:38→21:21)
[2021-03-08 09:12] VITALS: TEMP 97.5
[2021-03-08] MEDS: LACOSAMIDE 50 MG TABLET PO SCH (09:50)
[2021-03-08] MEDS: PHENYTOIN NA EXTENDED 100 MG CAPSULE (FP) PO SCH (09:50)
[2021-03-08] MEDS: levETIRAcetam 250 MG TABLET PO SCH (09:50)
[2021-03-08 13:56] VITALS: BP 126/73; PULSE 73
== END 2021-03-08 16:12 | disposition home or self-care (01) | DRG 53 ==
LOC: J4S 16:03
PROVIDERS: ADMIT Psychiatry & Neurology Neurology; ATTEND Psychiatry & Neurology Neurology
PROC: 4A10X4Z Monitoring of Central Nervous Electrical Activity, External Approach (ICD-10-PCS; principal; 2021-03-06)
DX: G40.909 Epilepsy, unspecified, not intractable, without status epilepticus (principal); F70 Mild intellectual disabilities; R29.6 Repeated falls
CPT/HCPCS: 36415; 80048; 80076; 80177; 85027; 93005; 93010

== ENCOUNTER 2021-05-22 19:31 | Emergency (ER) | payer OTHER ==
[2021-05-22 19:57] VITALS: BP 116/74; PULSE 64; TEMP 97.2; BMI 30.1
== END 2021-05-22 20:50 | disposition home or self-care (01) ==
LOC: JER 19:31 → JERFT 19:31
DX: M79.604 Pain in right leg (principal)
CPT/HCPCS: 73630-TC-RT-FY; 93971-TC; 99284-25

== ENCOUNTER 2022-01-01 10:40 | Emergency (ER) | payer OTHER ==
[2022-01-01 11:06] VITALS: BP 137/81; PULSE 64; TEMP 97.7; BMI 31.2
[2022-01-01] MEDS ORDERED: PHENYTOIN SODIUM 100 MG/2 ML VIAL IVPB ONE (11:32)
[2022-01-01] MEDS ORDERED: LORazepam 2 MG/ML SDV VIAL IVPUSH ONE (11:33)
[2022-01-01] MEDS ORDERED: PHENYTOIN SODIUM INJECTION 500 MG in SODIUM CHLORIDE 100 ML IVPB ONE (12:15)
[2022-01-01 12:18] LABS: BASO % 0.9 % (0-2.0); HEMATOCRIT 41.7 % (32.4-45.2); HEMOGLOBIN 13.6 GM/dL (10.7-15.3); LYMPH % 33.4 % (8-40); MCH 28.8 pg (25.7-33.7); MCHC 32.7 g/dl (32.0-36.0); MEAN CELL VOLUME 88.1 fl (80-96); MEAN PLT VOLUME 9.5 fl (7.5-11.1); MONO % 9.7 % (3.8-10.2); PLATELET COUNT 237 10^3/uL (134-434); RBC 4.73 M/mm3 (3.60-5.2); RDW 14.4 % (11.6-15.6); WHITE BLOOD COUNT 4.8 K/mm3 (4.0-10.0)
[2022-01-01 12:30] LABS: EPI CELLS 11 /uL (0-25.1); HYALINE CASTS 0 /uL (0-3.1); PH,URINE 5.5 (5.0-8.0); URINE APPEARANCE CLEAR; URINE BACTERIA 398 /uL (0-1359); URINE BILIRUBIN NEGATIVE (NEGATIVE); URINE COLOR YELLOW; URINE GLUCOSE (UA) NEGATIVE (NEGATIVE); URINE KETONE NEGATIVE (NEGATIVE); URINE LEUK ESTERASE NEGATIVE (NEGATIVE); URINE NITRITE NEGATIVE (NEGATIVE); URINE PROTEIN NEGATIVE (NEGATIVE); URINE RBC 4 /uL (0-23.9); URINE UROBILINOGEN 0.2 mg/dL (0.2-1.0); URINE WBC 2 /uL (0-25.8)
[2022-01-01 12:44] LABS: ALBUMIN 3.7 g/dl (3.4-5.0); BLOOD UREA NITROGEN 14.2 mg/dL (7-18); CALCIUM 8.7 mg/dL (8.5-10.1)
[2022-01-01 12:49] LABS: BILIRUBIN,TOTAL 0.2 mg/dL (0.2-1); TOT PROT 7.8 g/dl (6.4-8.2)
== END 2022-01-01 14:59 | disposition home or self-care (01) ==
LOC: JER 10:40
PROC: 3E033NZ Introduction of Analgesics, Hypnotics, Sedatives into Peripheral Vein, Percutaneous Approach (ICD-10-PCS; principal; 2022-01-01)
PROC: 3E033GC Introduction of Other Therapeutic Substance into Peripheral Vein, Percutaneous Approach (ICD-10-PCS; 2022-01-01)
DX: G40.89 Other seizures (principal)
CPT/HCPCS: 36415; 71045-TC-FY; 80053; 80177; 80185; 81003; 83735; 85025; 87086; 93005; 93010; 99285-25

== ENCOUNTER 2022-05-03 01:25 | Observation (INO) | payer OTHER ==
[2022-05-03 02:18] VITALS: BMI 33.8
[2022-05-03 05:30] LABS: HEMATOCRIT 43.6 % (32.4-45.2); HEMOGLOBIN 14.4 GM/dL (10.7-15.3); MCH 28.9 pg (25.7-33.7); MCHC 33.1 g/dl (32.0-36.0); MEAN CELL VOLUME 87.6 fl (80-96); MEAN PLT VOLUME 9.1 fl (7.5-11.1); PLATELET COUNT 283 10^3/uL (134-434); RBC 4.98 M/mm3 (3.60-5.2); RDW 13.9 % (11.6-15.6)
[2022-05-03 05:48] LABS: ALBUMIN 3.6 g/dl (3.4-5.0); BLOOD UREA NITROGEN 15.1 mg/dL (7-18)
[2022-05-03 05:53] LABS: BILIRUBIN,TOTAL 0.3 mg/dL (0.2-1); TOT PROT 8.2 g/dl (6.4-8.2)
[2022-05-03] MEDS ORDERED: LORazepam 2 MG/ML SDV VIAL IVPUSH PRN (07:59)
[2022-05-03] MEDS ORDERED: PHENYTOIN NA EXTENDED 100 MG CAPSULE (FP) PO SCH ×2 (10:00→22:00)
[2022-05-03] MEDS ORDERED: levETIRAcetam 250 MG TABLET PO SCH (10:00)
[2022-05-03] MEDS: MULTIVITAMINS (DAILY MVI) TABLET (FP) PO SCH (11:30)
[2022-05-03] MEDS: LACOSAMIDE 200 MG TABLET PO SCH ×2 (12:41→22:24)
[2022-05-03 19:31] LABS: PH,URINE 5.5 (5.0-8.0); URINE APPEARANCE CLEAR; URINE BILIRUBIN NEGATIVE (NEGATIVE); URINE COLOR YELLOW; URINE GLUCOSE (UA) NEGATIVE (NEGATIVE); URINE KETONE NEGATIVE (NEGATIVE); URINE LEUK ESTERASE NEGATIVE (NEGATIVE); URINE NITRITE NEGATIVE (NEGATIVE); URINE PROTEIN NEGATIVE (NEGATIVE); URINE UROBILINOGEN 0.2 mg/dL (0.2-1.0)
[2022-05-03] MEDS ORDERED: levETIRAcetam XR 750 MG TAB PO SCH (22:00)
[2022-05-03] MEDS: levETIRAcetam 500 MG TABLET (FP) PO SCH (22:23)
[2022-05-03] MEDS: LATANOPROST 0.005% OPHTH SOLN 2.5ML BOTTLE OU SCH (22:23)
[2022-05-04] MEDS: ENOXAPARIN NA (PORCINE) 40 MG/0.4 ML DISP.SYRIN SQ SCH (09:47)
[2022-05-04] MEDS: MULTIVITAMINS (DAILY MVI) TABLET (FP) PO SCH (09:48)
[2022-05-04] MEDS: LACOSAMIDE 200 MG TABLET PO SCH ×2 (09:48→21:15)
[2022-05-04] MEDS: levETIRAcetam 500 MG TABLET (FP) PO SCH ×2 (09:48→21:15)
[2022-05-04 10:50] LABS: CALCIUM 8.9 mg/dL (8.5-10.1)
[2022-05-04 10:51] LABS: BLOOD UREA NITROGEN 17.8 mg/dL (7-18); MAGNESIUM 2.2 mg/dL (1.8-2.4)
[2022-05-04 10:54] LABS: CREATININE 0.9 mg/dL (0.55-1.3)
[2022-05-04 11:00] LABS: HEMATOCRIT 43.2 % (32.4-45.2); HEMOGLOBIN 13.9 GM/dL (10.7-15.3); MCH 28.4 pg (25.7-33.7); MCHC 32.2 g/dl (32.0-36.0); MEAN PLT VOLUME 9.4 fl (7.5-11.1); PLATELET COUNT 244 10^3/uL (134-434); RBC 4.92 M/mm3 (3.60-5.2); RDW 13.6 % (11.6-15.6); WHITE BLOOD COUNT 6.3 K/mm3 (4.0-10.0)
[2022-05-04] MEDS: LATANOPROST 0.005% OPHTH SOLN 2.5ML BOTTLE OU SCH (21:16)
[2022-05-05] MEDS: LACOSAMIDE 200 MG TABLET PO SCH ×2 (09:45→22:14)
[2022-05-05] MEDS: MULTIVITAMINS (DAILY MVI) TABLET (FP) PO SCH (09:45)
[2022-05-05] MEDS: ENOXAPARIN NA (PORCINE) 40 MG/0.4 ML DISP.SYRIN SQ SCH (09:45)
[2022-05-05] MEDS: levETIRAcetam 500 MG TABLET (FP) PO SCH ×2 (09:45→22:14)
[2022-05-05 10:17] LABS: HEMATOCRIT 42.2 % (32.4-45.2); HEMOGLOBIN 13.9 GM/dL (10.7-15.3); MCH 29.2 pg (25.7-33.7); MCHC 33.1 g/dl (32.0-36.0); MEAN CELL VOLUME 88.4 fl (80-96); MEAN PLT VOLUME 8.8 fl (7.5-11.1); PLATELET COUNT 231 10^3/uL (134-434); RBC 4.77 M/mm3 (3.60-5.2); RDW 14.1 % (11.6-15.6); WHITE BLOOD COUNT 4.4 K/mm3 (4.0-10.0)
[2022-05-05 10:41] LABS: CALCIUM 8.6 mg/dL (8.5-10.1)
[2022-05-05 10:42] LABS: BLOOD UREA NITROGEN 14.3 mg/dL (7-18)
[2022-05-05 10:45] LABS: CREATININE 0.9 mg/dL (0.55-1.3)
[2022-05-05] MEDS ORDERED: PHENYTOIN NA EXTENDED 100 MG CAPSULE (FP) PO SCH (13:57)
[2022-05-05] MEDS: LATANOPROST 0.005% OPHTH SOLN 2.5ML BOTTLE OU SCH (22:14)
[2022-05-06] MEDS: ENOXAPARIN NA (PORCINE) 40 MG/0.4 ML DISP.SYRIN SQ SCH (09:48)
[2022-05-06] MEDS: MULTIVITAMINS (DAILY MVI) TABLET (FP) PO SCH (09:48)
[2022-05-06] MEDS: levETIRAcetam 500 MG TABLET (FP) PO SCH (09:48)
[2022-05-06] MEDS: LACOSAMIDE 200 MG TABLET PO SCH (09:48)
[2022-05-06 13:31] VITALS: RESP 18
[2022-05-06 18:29] VITALS: BP 101/47; PULSE 81; TEMP 97.9
== END 2022-05-06 19:03 | disposition home or self-care (01) ==
LOC: JER 01:25 → UNDOADMOB 06:36 → JERBED 06:36 → INTOOBSV 06:36 → JERBED 07:49 → J5S 11:07
PROVIDERS: ADMIT Internal Medicine; ATTEND Internal Medicine
PROC: 3E023GC Introduction of Other Therapeutic Substance into Muscle, Percutaneous Approach (ICD-10-PCS; principal; 2022-05-03)
DX: G40.801 Other epilepsy, not intractable, with status epilepticus (principal); R62.50 Unspecified lack of expected normal physiological development in childhood; R29.6 Repeated falls; G91.9 Hydrocephalus, unspecified; R42 Dizziness and giddiness; E66.8 Other obesity; Z68.33 Body mass index [BMI] 33.0-33.9, adult; Z29.8 Encounter for other specified prophylactic measures
CPT/HCPCS: 36415; 70450-TC; 80048; 80053; 80177; 80185; 81003; 82550; 83735; 84443; 84703; 85027; 87086; 96372; 97116-GP; 97162-GP; 99285-25; C9803-CS; G0378; G0480; U0003; U0005

== ENCOUNTER 2022-08-15 13:29 | Emergency (ER) | payer OTHER ==
[2022-08-15 13:58] VITALS: RESP 18; BMI 25.7
[2022-08-15 16:03] LABS: PH,URINE 5.5 (5.0-8.0); URINE APPEARANCE CLEAR; URINE BILIRUBIN NEGATIVE (NEGATIVE); URINE COLOR YELLOW; URINE GLUCOSE (UA) NEGATIVE (NEGATIVE); URINE KETONE NEGATIVE (NEGATIVE); URINE LEUK ESTERASE NEGATIVE (NEGATIVE); URINE NITRITE NEGATIVE (NEGATIVE); URINE PROTEIN NEGATIVE (NEGATIVE); URINE UROBILINOGEN 0.2 mg/dL (0.2-1.0)
[2022-08-15] MEDS ORDERED: levETIRAcetam 500 MG TABLET (FP) PO ONE ×2 (16:12→16:51)
[2022-08-15 16:35] LABS: BASO % 0.5 % (0-2.0); HEMATOCRIT 42.8 % (32.4-45.2); HEMOGLOBIN 14.5 GM/dL (10.7-15.3); LYMPH % 26.8 % (8-40); MCH 29.9 pg (25.7-33.7); MCHC 33.8 g/dl (32.0-36.0); MEAN CELL VOLUME 88.2 fl (80-96); MEAN PLT VOLUME 9.7 fl (7.5-11.1); MONO % 8.9 % (3.8-10.2); NEUT % 63.8 % (42.8-82.8); PLATELET COUNT 239 10^3/uL (134-434); RBC 4.85 M/mm3 (3.60-5.2); RDW 14.1 % (11.6-15.6); WHITE BLOOD COUNT 6.7 K/mm3 (4.0-10.0)
[2022-08-15 16:59] LABS: ALBUMIN 3.4 g/dl (3.4-5.0); BLOOD UREA NITROGEN 15.2 mg/dL (7-18); CALCIUM 8.7 mg/dL (8.5-10.1)
[2022-08-15 17:03] LABS: CREATININE 0.8 mg/dL (0.55-1.3)
[2022-08-15 17:05] LABS: BILIRUBIN,TOTAL 0.3 mg/dL (0.2-1)
[2022-08-15 18:57] VITALS: BP 133/75; PULSE 85; TEMP 98.4
== END 2022-08-15 19:02 | disposition home or self-care (01) ==
LOC: JER 13:29
DX: R56.9 Unspecified convulsions (principal)
CPT/HCPCS: 36415; 71045-TC-FY; 80053; 80177; 81003; 85025; 87086; 93005; 93010; 99285-25

== ENCOUNTER 2023-01-06 01:40 | Emergency (ER) | payer OTHER ==
[2023-01-06] MEDS ORDERED: LORazepam 2 MG/ML SDV VIAL IM ONE (01:43)
[2023-01-06 01:47] VITALS: RESP 16; BMI 30.9
[2023-01-06] MEDS ORDERED: LORazepam 2 MG/ML SDV VIAL IVPUSH ONE (01:54)
[2023-01-06] MEDS ORDERED: levETIRAcetam 500 MG/5 ML INJECTION VIAL IVPB ONE ×3 (01:55→05:52)
[2023-01-06 02:11] LABS: BASO % 0.3 % (0-2.0); HEMATOCRIT 43.4 % (32.4-45.2); HEMOGLOBIN 14.5 GM/dL (10.7-15.3); LYMPH % 34.3 % (8-40); MCH 28.9 pg (25.7-33.7); MCHC 33.4 g/dl (32.0-36.0); MEAN CELL VOLUME 86.5 fl (80-96); MEAN PLT VOLUME 8.9 fl (7.5-11.1); MONO % 11.1 % (3.8-10.2); NEUT % 54.3 % (42.8-82.8); PLATELET COUNT 309 10^3/uL (134-434); RBC 5.02 M/mm3 (3.60-5.2); RDW 13.9 % (11.6-15.6); WHITE BLOOD COUNT 4.9 K/mm3 (4.0-10.0)
[2023-01-06 02:27] LABS: ALBUMIN 3.8 g/dl (3.4-5.0); CALCIUM 9.1 mg/dL (8.5-10.1)
[2023-01-06 02:28] LABS: BLOOD UREA NITROGEN 15.8 mg/dL (7-18); MAGNESIUM 2.1 mg/dL (1.8-2.4)
[2023-01-06 02:30] LABS: CREATININE 0.9 mg/dL (0.55-1.3)
[2023-01-06 02:32] LABS: BILIRUBIN,TOTAL 0.2 mg/dL (0.2-1); TOT PROT 8.7 g/dl (6.4-8.2)
[2023-01-06 06:09] VITALS: BP 152/84; PULSE 86; TEMP 98.3
== END 2023-01-06 07:00 | disposition short-term general hospital (02) ==
LOC: JER 01:40
PROC: 3E033GC Introduction of Other Therapeutic Substance into Peripheral Vein, Percutaneous Approach (ICD-10-PCS; principal; 2023-01-06)
PROC: 3E033GC Introduction of Other Therapeutic Substance into Peripheral Vein, Percutaneous Approach (ICD-10-PCS; 2023-01-06)
DX: G40.901 Epilepsy, unspecified, not intractable, with status epilepticus (principal); Z20.822 Contact with and (suspected) exposure to COVID-19
CPT/HCPCS: 36415; 70450-TC; 80053; 80177; 80185; 82962; 83735; 84703; 85025; 93005; 93010; 99285-25; C9803-CS; U0003; U0005

== ENCOUNTER 2023-03-05 21:20 | Emergency (ER) | payer OTHER ==
[2023-03-05 21:29] VITALS: BP 135/72; PULSE 72; RESP 18; TEMP 98; BMI 34.0
[2023-03-05 22:36] LABS: VENOUS BASE EXCESS 1.3 mmol/L (-2-2); VENOUS O2 SATURATION 95.9 % (70-80); VENOUS PCO2 45.4 mmHg (38-52); VENOUS PH 7.388 (7.310-7.410)
== END 2023-03-05 22:50 | disposition home or self-care (01) ==
LOC: JERFT 21:20
DX: Z77.098 Contact with and (suspected) exposure to other hazardous, chiefly nonmedicinal, chemicals (principal)
CPT/HCPCS: 82375; 82803; 99283-25

== ENCOUNTER 2023-05-03 20:31 | Emergency (ER) | payer OTHER ==
[2023-05-03 20:38] VITALS: RESP 16; BMI 32.9
[2023-05-03 22:31] LABS: BASO % 0.1 % (0-2.0); HEMATOCRIT 39.8 % (32.4-45.2); HEMOGLOBIN 13.2 GM/dL (10.7-15.3); LYMPH % 30.2 % (8-40); MCH 27.8 pg (25.7-33.7); MCHC 33.2 g/dl (32.0-36.0); MEAN CELL VOLUME 83.7 fl (80-96); MEAN PLT VOLUME 9.1 fl (7.5-11.1); MONO % 10.6 % (3.8-10.2); NEUT % 59.1 % (42.8-82.8); PLATELET COUNT 258 10^3/uL (134-434); RBC 4.76 M/mm3 (3.60-5.2); RDW 13.6 % (11.6-15.6)
[2023-05-03 22:32] LABS: PH,URINE 5.5 (5.0-8.0); URINE APPEARANCE CLEAR; URINE BILIRUBIN NEGATIVE (NEGATIVE); URINE COLOR YELLOW; URINE GLUCOSE (UA) NEGATIVE (NEGATIVE); URINE KETONE NEGATIVE (NEGATIVE); URINE LEUK ESTERASE NEGATIVE (NEGATIVE); URINE NITRITE NEGATIVE (NEGATIVE); URINE PROTEIN NEGATIVE (NEGATIVE); URINE UROBILINOGEN 0.2 mg/dL (0.2-1.0)
[2023-05-03 22:43] LABS: POTASSIUM 3.9 mmol/L (3.5-5.1)
[2023-05-03 22:45] LABS: CALCIUM 9.2 mg/dL (8.5-10.1)
[2023-05-03 22:46] LABS: ALBUMIN 3.7 g/dl (3.4-5.0); BLOOD UREA NITROGEN 18.2 mg/dL (7-18)
[2023-05-03 22:49] LABS: CREATININE 1.1 mg/dL (0.55-1.3)
[2023-05-03 22:50] LABS: BILIRUBIN,TOTAL 0.2 mg/dL (0.2-1)
[2023-05-03] MEDS ORDERED: ZONISAMIDE 100 MG CAPSULE PO ONE (23:08)
[2023-05-03 23:55] VITALS: BP 123/82; PULSE 63; TEMP 98.6
[2023-05-03] MEDS ORDERED: levETIRAcetam 500 MG TABLET (FP) PO ONE (23:58)
[2023-05-04] MEDS ORDERED: levETIRAcetam 500 MG TABLET (FP) PO ONE (00:01)
== END 2023-05-04 00:24 | disposition home or self-care (01) ==
LOC: JER 20:31
DX: G40.909 Epilepsy, unspecified, not intractable, without status epilepticus (principal)
CPT/HCPCS: 36415; 70450-TC; 80053; 80177; 81003; 84703; 85025; 87086; 93005; 93010; 99285-25

== ENCOUNTER 2023-07-01 11:27 | Emergency (ER) | payer OTHER ==
[2023-07-01 11:37] VITALS: BP 131/72; PULSE 66; RESP 20; TEMP 97.7; BMI 32.9
[2023-07-01] MEDS ORDERED: levETIRAcetam 500 MG/5 ML INJECTION VIAL IVPB ONE ×2 (11:58→13:42)
[2023-07-01] MEDS ORDERED: ZONISAMIDE 100 MG CAPSULE PO ONE ×2 (12:01→12:40)
[2023-07-01 13:56] LABS: BASO % 0.3 % (0-2.0); HEMATOCRIT 41.5 % (32.4-45.2); MCH 27.9 pg (25.7-33.7); MCHC 33.7 g/dl (32.0-36.0); MEAN CELL VOLUME 82.9 fl (80-96); MEAN PLT VOLUME 9.1 fl (7.5-11.1); MONO % 7.1 % (3.8-10.2); NEUT % 62.6 % (42.8-82.8); PLATELET COUNT 249 10^3/uL (134-434); RBC 5.01 M/mm3 (3.60-5.2); RDW 14.3 % (11.6-15.6); WHITE BLOOD COUNT 5.7 K/mm3 (4.0-10.0)
[2023-07-01 14:28] LABS: POTASSIUM 3.8 mmol/L (3.5-5.1)
[2023-07-01 14:30] LABS: ALBUMIN 3.5 g/dl (3.4-5.0); BLOOD UREA NITROGEN 13.2 mg/dL (7-18); CALCIUM 8.8 mg/dL (8.5-10.1)
[2023-07-01 14:35] LABS: BILIRUBIN,TOTAL 0.3 mg/dL (0.2-1); TOT PROT 7.8 g/dl (6.4-8.2)
[2023-07-04 16:07] LABS: ZONISAMIDE(ZONEGRAN), SERUM 3.8 ug/mL (10.0-40.0)
== END 2023-07-01 18:55 | disposition home or self-care (01) ==
LOC: JER 11:27
PROC: 3E033GC Introduction of Other Therapeutic Substance into Peripheral Vein, Percutaneous Approach (ICD-10-PCS; principal; 2023-07-01)
DX: G40.909 Epilepsy, unspecified, not intractable, without status epilepticus (principal)
CPT/HCPCS: 36415; 80053; 80177; 80203; 82962; 85025; 93005; 93010; 99284-25

== ENCOUNTER 2023-07-10 10:27 | Inpatient (IN) | payer OTHER ==
[2023-07-10 13:45] LABS: BASO % 0.3 % (0-2.0); EOS % 0.1 % (0-4.5); HEMATOCRIT 42.5 % (32.4-45.2); HEMOGLOBIN 14.1 GM/dL (10.7-15.3); LYMPH % 24.8 % (8-40); MCHC 33.2 g/dl (32.0-36.0); MEAN CELL VOLUME 84.3 fl (80-96); MEAN PLT VOLUME 9.9 fl (7.5-11.1); MONO % 8.3 % (3.8-10.2); NEUT % 66.5 % (42.8-82.8); PLATELET COUNT 260 10^3/uL (134-434); RBC 5.04 M/mm3 (3.60-5.2); RDW 15.8 % (11.6-15.6); WHITE BLOOD COUNT 5.6 K/mm3 (4.0-10.0)
[2023-07-10 14:11] LABS: CHLORIDE 104 mmol/L (98-107); SODIUM 126 mmol/L (136-145)
[2023-07-10 14:13] LABS: CALCIUM 8.3 mg/dL (8.5-10.1)
[2023-07-10 14:14] LABS: ALBUMIN 3.1 g/dl (3.4-5.0); BLOOD UREA NITROGEN 17.4 mg/dL (7-18); CO2 27 mmol/L (21-32); GLUCOSE,RANDOM 104 mg/dL (74-106); MAGNESIUM 2.4 mg/dL (1.8-2.4)
[2023-07-10 14:17] LABS: CREATININE 1.1 mg/dL (0.55-1.3)
[2023-07-10 14:18] LABS: TOT PROT 9.2 g/dl (6.4-8.2)
[2023-07-10] MEDS ORDERED: SODIUM CHLORIDE 0.9% 500 ML INFUS.BAG IV ONE (14:24)
[2023-07-10] MEDS ORDERED: levETIRAcetam 500 MG/5 ML INJECTION VIAL IVPB ONE ×3 (14:24→15:49)
[2023-07-10] MEDS ORDERED: ZONISAMIDE 100 MG CAPSULE PO ONE (14:33)
[2023-07-10 14:43] LABS: ALK PHOS 177 U/L (45-117); ANION GAP -5 MMOL/L (8-16); BILIRUBIN,TOTAL 0.2 mg/dL (0.2-1); POTASSIUM 8.8 mmol/L (3.5-5.1); SGOT/AST 62 U/L (15-37); SGPT/ALT 42 U/L (13-61)
[2023-07-10 18:17] LABS: POTASSIUM 3.9 mmol/L (3.5-5.1)
[2023-07-10 18:18] LABS: CALCIUM 8.4 mg/dL (8.5-10.1)
[2023-07-10 18:19] LABS: BLOOD UREA NITROGEN 15.1 mg/dL (7-18)
[2023-07-11 00:07] VITALS: BMI 33.2
[2023-07-11] MEDS: levETIRAcetam 500 MG/5 ML INJECTION VIAL IVPB SCH ×3 (03:54→21:30)
[2023-07-11 08:02] LABS: BASO % 0.2 % (0-2.0); HEMATOCRIT 41.2 % (32.4-45.2); LYMPH % 28.6 % (8-40); MCH 28.6 pg (25.7-33.7); MCHC 34.1 g/dl (32.0-36.0); MEAN CELL VOLUME 83.9 fl (80-96); MEAN PLT VOLUME 9.9 fl (7.5-11.1); MONO % 7.6 % (3.8-10.2); NEUT % 63.6 % (42.8-82.8); PLATELET COUNT 208 10^3/uL (134-434); RBC 4.91 M/mm3 (3.60-5.2); RDW 14.4 % (11.6-15.6); WHITE BLOOD COUNT 5.8 K/mm3 (4.0-10.0)
[2023-07-11 08:34] LABS: POTASSIUM 4.4 mmol/L (3.5-5.1)
[2023-07-11 08:37] LABS: CALCIUM 8.9 mg/dL (8.5-10.1)
[2023-07-11 08:39] LABS: ALBUMIN 3.5 g/dl (3.4-5.0); BLOOD UREA NITROGEN 12.5 mg/dL (7-18)
[2023-07-11 08:41] LABS: CREATININE 0.9 mg/dL (0.55-1.3)
[2023-07-11 08:42] LABS: BILIRUBIN,TOTAL 0.6 mg/dL (0.2-1); TOT PROT 7.6 g/dl (6.4-8.2)
[2023-07-11] MEDS: ENOXAPARIN NA (PORCINE) 40 MG/0.4 ML DISP.SYRIN SQ SCH (09:12)
[2023-07-11] MEDS ORDERED: ZONISAMIDE 25 MG CAPSULE PO SCH ×2 (10:00)
[2023-07-11] MEDS: ZONISAMIDE 100 MG/10 ML ORAL SUSPENSION PO SCH ×2 (16:06→21:32)
[2023-07-12] MEDS: ENOXAPARIN NA (PORCINE) 40 MG/0.4 ML DISP.SYRIN SQ SCH (09:33)
[2023-07-12] MEDS: levETIRAcetam 500 MG/5 ML INJECTION VIAL IVPB SCH ×2 (09:33→11:04)
[2023-07-12] MEDS: ZONISAMIDE 100 MG/10 ML ORAL SUSPENSION PO SCH ×2 (09:33→22:01)
[2023-07-12] MEDS: ACETAMINOPHEN 325 MG TABLET (FP) PO PRN (11:56)
[2023-07-12] MEDS ORDERED: INSULIN (NOVOLOG) ASPART 100 UNITS/ML 10ML VIAL ONE (19:23)
[2023-07-13] MEDS: ACETAMINOPHEN 325 MG TABLET (FP) PO PRN (06:39)
[2023-07-13] MEDS: ENOXAPARIN NA (PORCINE) 40 MG/0.4 ML DISP.SYRIN SQ SCH (09:38)
[2023-07-13] MEDS ORDERED: levETIRAcetam 500 MG TABLET (FP) PO SCH (10:00)
[2023-07-13] MEDS: ZONISAMIDE 100 MG/10 ML ORAL SUSPENSION PO SCH (11:42)
[2023-07-13 14:25] VITALS: BP 156/60; PULSE 93; RESP 18; TEMP 98.7
== END 2023-07-13 17:49 | disposition home or self-care (01) | DRG 53 ==
LOC: JER 10:27 → JERBED 14:36 → J4W 20:47 → OBSVTOIN 07-11 01:14
PROVIDERS: ADMIT Internal Medicine; ATTEND Internal Medicine
DX: G40.909 Epilepsy, unspecified, not intractable, without status epilepticus (principal); G91.9 Hydrocephalus, unspecified; E87.5 Hyperkalemia; F89 Unspecified disorder of psychological development
CPT/HCPCS: 36415; 80048; 80053; 80177; 80203; 82962; 83735; 85025; 99285-25; G0378

== ENCOUNTER 2023-07-20 19:56 | Inpatient (IN) | payer OTHER ==
[2023-07-20 22:16] LABS: POTASSIUM 5.7 mmol/L (3.5-5.1)
[2023-07-20] MEDS ORDERED: levETIRAcetam 500 MG/5 ML INJECTION VIAL IVPB ONE ×2 (22:16→23:29)
[2023-07-20 22:18] LABS: CALCIUM 8.9 mg/dL (8.5-10.1)
[2023-07-20 22:19] LABS: ALBUMIN 3.5 g/dl (3.4-5.0); BLOOD UREA NITROGEN 17.6 mg/dL (7-18); MAGNESIUM 2.1 mg/dL (1.8-2.4)
[2023-07-20 22:22] LABS: CREATININE 1.3 mg/dL (0.55-1.3); PHOSPHOROUS 3.4 mg/dL (2.5-4.9)
[2023-07-20 22:23] LABS: BILIRUBIN,TOTAL 0.3 mg/dL (0.2-1)
[2023-07-20 22:24] LABS: TOT PROT 8.6 g/dl (6.4-8.2)
[2023-07-20 23:33] LABS: URINE APPEARANCE Clear; URINE BILIRUBIN Negative (NEGATIVE); URINE COLOR Yellow; URINE GLUCOSE (UA) Negative (NEGATIVE); URINE KETONE Trace (NEGATIVE); URINE LEUK ESTERASE 1+ (NEGATIVE); URINE NITRITE Negative (NEGATIVE); URINE PROTEIN Trace (NEGATIVE); URINE UROBILINOGEN 0.2 mg/dL (0.2-1.0)
[2023-07-20 23:36] LABS: HYALINE CASTS 1.89 /uL (0-3.1); URINE BACTERIA 91.5 /uL (0-1359); URINE CRYSTALS MODERATE /hpf; URINE RBC 10.5 /uL (0-23.9); URINE WBC 97.7 /uL (0-25.8)
[2023-07-21 01:38] LABS: BASO % 0.3 % (0-2.0); EOS % 0.1 % (0-4.5); HEMATOCRIT 45.2 % (32.4-45.2); HEMOGLOBIN 15.4 GM/dL (10.7-15.3); LYMPH % 12.4 % (8-40); MCH 28.2 pg (25.7-33.7); MCHC 34.1 g/dl (32.0-36.0); MEAN CELL VOLUME 82.8 fl (80-96); MEAN PLT VOLUME 8.6 fl (7.5-11.1); MONO % 9.8 % (3.8-10.2); NEUT % 77.4 % (42.8-82.8); PLATELET COUNT 296 10^3/uL (134-434); RBC 5.46 M/mm3 (3.60-5.2); RDW 14.3 % (11.6-15.6); WHITE BLOOD COUNT 13.2 K/mm3 (4.0-10.0)
[2023-07-21] MEDS ORDERED: levETIRAcetam 500 MG/5 ML INJECTION VIAL IVPB ONE (09:01)
[2023-07-21] MEDS ORDERED: ENOXAPARIN NA (PORCINE) 40 MG/0.4 ML DISP.SYRIN SQ ONE (09:01)
[2023-07-21] MEDS: ENOXAPARIN NA (PORCINE) 40 MG/0.4 ML DISP.SYRIN SQ SCH (09:37)
[2023-07-21] MEDS ORDERED: ZONISAMIDE 25 MG CAPSULE PO SCH (10:00)
[2023-07-21] MEDS ORDERED: levETIRAcetam 500 MG/5 ML INJECTION VIAL IVPB SCH (10:00)
[2023-07-21] MEDS ORDERED: ACETAMINOPHEN 325 MG TABLET (FP) PO PRN (15:53)
[2023-07-21 21:40] LABS: POTASSIUM 3.6 mmol/L (3.5-5.1)
[2023-07-21 21:42] LABS: BLOOD UREA NITROGEN 17.3 mg/dL (7-18); CALCIUM 8.7 mg/dL (8.5-10.1)
[2023-07-21 21:46] LABS: CREATININE 1.3 mg/dL (0.55-1.3)
[2023-07-21] MEDS: levETIRAcetam 500 MG TABLET (FP) PO SCH (22:28)
[2023-07-21 23:55] VITALS: BMI 32.0
[2023-07-22] MEDS: cloBAZam 10 MG TABLET PO SCH (09:22)
[2023-07-22] MEDS: ENOXAPARIN NA (PORCINE) 40 MG/0.4 ML DISP.SYRIN SQ SCH (09:22)
[2023-07-22] MEDS: levETIRAcetam 500 MG TABLET (FP) PO SCH (09:23)
[2023-07-22 11:24] LABS: POTASSIUM 3.9 mmol/L (3.5-5.1)
[2023-07-22 11:33] LABS: CALCIUM 9.2 mg/dL (8.5-10.1)
[2023-07-22 11:34] LABS: ALBUMIN 3.7 g/dl (3.4-5.0); BLOOD UREA NITROGEN 15.8 mg/dL (7-18)
[2023-07-22 11:37] LABS: CREATININE 1.2 mg/dL (0.55-1.3)
[2023-07-22 11:38] LABS: TOT PROT 8.1 g/dl (6.4-8.2)
[2023-07-22 11:39] LABS: BILIRUBIN,TOTAL 0.5 mg/dL (0.2-1)
[2023-07-22 12:49] LABS: BASO % 0.2 % (0-2.0); HEMATOCRIT 45.4 % (32.4-45.2); HEMOGLOBIN 15.4 GM/dL (10.7-15.3); LYMPH % 18.2 % (8-40); MEAN CELL VOLUME 82.4 fl (80-96); MONO % 11.6 % (3.8-10.2); PLATELET COUNT 327 10^3/uL (134-434); RBC 5.51 M/mm3 (3.60-5.2); RDW 14.4 % (11.6-15.6); WHITE BLOOD COUNT 10.9 K/mm3 (4.0-10.0)
[2023-07-22] MEDS: levETIRAcetam 500 MG/5 ML INJECTION VIAL IVPB SCH ×2 (20:20→23:05)
[2023-07-23] MEDS ORDERED: amLODIPine BESYLATE 2.5 MG TABLET (FP) PO SCH (10:00)
[2023-07-23] MEDS: levETIRAcetam 500 MG/5 ML INJECTION VIAL IVPB SCH ×2 (10:02→21:03)
[2023-07-23] MEDS: ENOXAPARIN NA (PORCINE) 40 MG/0.4 ML DISP.SYRIN SQ SCH (10:03)
[2023-07-23] MEDS: cloBAZam 10 MG TABLET PO SCH (10:03)
[2023-07-23] MEDS ORDERED: ACETAMINOPHEN INJECTION 100 ML IVPB ONE (19:48)
[2023-07-23] MEDS ORDERED: ACETAMINOPHEN 1000 MG/100 ML BAG IVPB PRN (19:51)
[2023-07-23] MEDS: Lacosamide 200 MG/20 ML VIAL IVPB SCH ×2 (20:20→21:03)
[2023-07-23] MEDS ORDERED: ACETAMINOPHEN 325 MG TABLET (FP) PO PRN (20:26)
[2023-07-23] MEDS: MUPIROCIN 2% TOPICAL OINTMENT FOR DECOLONIZATION NS SCH (21:03)
[2023-07-23] MEDS ORDERED: CHLORHEXIDINE GLUCONATE 4% CLEANSER FOR DECOLONIZATION TP SCH (22:00)
[2023-07-23] MEDS ORDERED: Lacosamide 200 MG/20 ML VIAL IVPB SCH (22:00)
[2023-07-23 23:11] LABS: PH,URINE 6.5 (5.0-8.0); URINE APPEARANCE CLEAR; URINE BILIRUBIN NEGATIVE (NEGATIVE); URINE COLOR YELLOW; URINE GLUCOSE (UA) NEGATIVE (NEGATIVE); URINE KETONE NEGATIVE (NEGATIVE); URINE LEUK ESTERASE NEGATIVE (NEGATIVE); URINE NITRITE NEGATIVE (NEGATIVE); URINE PROTEIN NEGATIVE (NEGATIVE)
[2023-07-24] MEDS: MUPIROCIN 2% TOPICAL OINTMENT FOR DECOLONIZATION NS SCH ×2 (06:38→09:42)
[2023-07-24] MEDS ORDERED: ACETAMINOPHEN 1000 MG/100 ML BAG IVPB PRN (07:56)
[2023-07-24] MEDS: Lacosamide 200 MG/20 ML VIAL IVPB SCH ×2 (09:43→21:50)
[2023-07-24] MEDS: levETIRAcetam 500 MG/5 ML INJECTION VIAL IVPB SCH ×2 (09:44→21:54)
[2023-07-24] MEDS ORDERED: amLODIPine BESYLATE 2.5 MG TABLET (FP) PO SCH ×2 (10:00)
[2023-07-24] MEDS ORDERED: cloBAZam 10 MG TABLET PO SCH (10:00)
[2023-07-24] MEDS ORDERED: ENOXAPARIN NA (PORCINE) 40 MG/0.4 ML DISP.SYRIN SQ SCH (10:00)
[2023-07-24] MEDS ORDERED: REMDESIVIR 200 MG in SODIUM CHLORIDE 250 ML IVPB ONE (11:15)
[2023-07-24 14:15] LABS: BASO % 0.2 % (0-2.0); HEMATOCRIT 48.2 % (32.4-45.2); HEMOGLOBIN 16.1 GM/dL (10.7-15.3); LYMPH % 20.3 % (8-40); MCHC 33.4 g/dl (32.0-36.0); MEAN CELL VOLUME 83.7 fl (80-96); MEAN PLT VOLUME 8.9 fl (7.5-11.1); MONO % 7.5 % (3.8-10.2); PLATELET COUNT 290 10^3/uL (134-434); RBC 5.76 M/mm3 (3.60-5.2); RDW 14.5 % (11.6-15.6); WHITE BLOOD COUNT 9.3 K/mm3 (4.0-10.0)
[2023-07-24 14:23] LABS: POTASSIUM 3.5 mmol/L (3.5-5.1)
[2023-07-24 14:24] LABS: ALBUMIN 3.4 g/dl (3.4-5.0); CALCIUM 8.6 mg/dL (8.5-10.1)
[2023-07-24 14:25] LABS: BLOOD UREA NITROGEN 15.5 mg/dL (7-18)
[2023-07-24 14:28] LABS: CREATININE 1.1 mg/dL (0.55-1.3)
[2023-07-24 14:30] LABS: BILIRUBIN,TOTAL 0.4 mg/dL (0.2-1); TOT PROT 7.6 g/dl (6.4-8.2)
[2023-07-24] MEDS ORDERED: MUPIROCIN 2% TOPICAL OINTMENT FOR DECOLONIZATION NS SCH (22:00)
[2023-07-24] MEDS ORDERED: CHLORHEXIDINE GLUCONATE 4% CLEANSER FOR DECOLONIZATION TP SCH (22:00)
[2023-07-25 08:17] LABS: HEMOGLOBIN 16.3 GM/dL (10.7-15.3); MCH 28.8 pg (25.7-33.7); MCHC 34.7 g/dl (32.0-36.0); MEAN CELL VOLUME 82.9 fl (80-96); PLATELET COUNT 309 10^3/uL (134-434); RBC 5.67 M/mm3 (3.60-5.2); RDW 14.4 % (11.6-15.6); WHITE BLOOD COUNT 8.4 K/mm3 (4.0-10.0)
[2023-07-25 08:36] LABS: POTASSIUM 3.9 mmol/L (3.5-5.1)
[2023-07-25 08:40] LABS: ALBUMIN 3.5 g/dl (3.4-5.0); BLOOD UREA NITROGEN 17.2 mg/dL (7-18); CALCIUM 8.8 mg/dL (8.5-10.1); MAGNESIUM 2.1 mg/dL (1.8-2.4)
[2023-07-25 08:44] LABS: PHOSPHOROUS 3.1 mg/dL (2.5-4.9)
[2023-07-25 08:45] LABS: BILIRUBIN,TOTAL 0.5 mg/dL (0.2-1); TOT PROT 7.9 g/dl (6.4-8.2)
[2023-07-25] MEDS: levETIRAcetam 500 MG/5 ML INJECTION VIAL IVPB SCH ×2 (09:33→22:39)
[2023-07-25] MEDS: ENOXAPARIN NA (PORCINE) 40 MG/0.4 ML DISP.SYRIN SQ SCH (09:34)
[2023-07-25] MEDS: Lacosamide 200 MG/20 ML VIAL IVPB SCH ×2 (09:34→22:39)
[2023-07-25] MEDS: cloBAZam 10 MG TABLET PO SCH (09:34)
[2023-07-25] MEDS: REMDESIVIR 100 MG in SODIUM CHLORIDE 230 ML IVPB SCH (14:38)
[2023-07-25] MEDS: amLODIPine BESYLATE 2.5 MG TABLET (FP) PO SCH (14:38)
[2023-07-26] MEDS: Lacosamide 200 MG/20 ML VIAL IVPB SCH ×2 (09:16→22:09)
[2023-07-26] MEDS: ENOXAPARIN NA (PORCINE) 40 MG/0.4 ML DISP.SYRIN SQ SCH (09:16)
[2023-07-26] MEDS: levETIRAcetam 500 MG/5 ML INJECTION VIAL IVPB SCH ×2 (09:19→21:29)
[2023-07-26] MEDS: amLODIPine BESYLATE 2.5 MG TABLET (FP) PO SCH (09:21)
[2023-07-26] MEDS: cloBAZam 10 MG TABLET PO SCH (09:21)
[2023-07-26] MEDS: REMDESIVIR 100 MG in SODIUM CHLORIDE 230 ML IVPB SCH (14:16)
[2023-07-26] MEDS ORDERED: ACETAMINOPHEN 325 MG TABLET (FP) PO ONE (21:15)
[2023-07-27] MEDS: ENOXAPARIN NA (PORCINE) 40 MG/0.4 ML DISP.SYRIN SQ SCH (10:59)
[2023-07-27] MEDS: levETIRAcetam 500 MG/5 ML INJECTION VIAL IVPB SCH (10:59)
[2023-07-27] MEDS: amLODIPine BESYLATE 2.5 MG TABLET (FP) PO SCH (11:00)
[2023-07-27] MEDS: Lacosamide 200 MG/20 ML VIAL IVPB SCH (11:00)
[2023-07-27] MEDS: cloBAZam 10 MG TABLET PO SCH (11:00)
[2023-07-27] MEDS: REMDESIVIR 100 MG in SODIUM CHLORIDE 230 ML IVPB SCH (14:31)
[2023-07-27] MEDS: metoPROLOL SUCCINATE 25 MG TAB.SR.24H (FP) PO SCH (15:02)
[2023-07-27] MEDS: BACITRACIN ZINC 15 GM TUBE TOPICAL OINTMENT TP SCH ×2 (15:40→21:31)
[2023-07-27] MEDS ORDERED: LORazepam 2 MG/ML SDV VIAL IVPUSH ONE (20:15)
[2023-07-27] MEDS: levETIRAcetam 500 MG TABLET (FP) PO SCH (21:31)
[2023-07-27] MEDS ORDERED: LACOSAMIDE 100 MG TABLET PO SCH (22:00)
[2023-07-28 08:10] LABS: BASO % 0.5 % (0-2.0); EOS % 0.7 % (0-4.5); HEMATOCRIT 48.1 % (32.4-45.2); HEMOGLOBIN 15.7 GM/dL (10.7-15.3); LYMPH % 26.6 % (8-40); MCH 27.9 pg (25.7-33.7); MCHC 32.7 g/dl (32.0-36.0); MEAN CELL VOLUME 85.2 fl (80-96); MEAN PLT VOLUME 8.9 fl (7.5-11.1); MONO % 9.9 % (3.8-10.2); NEUT % 62.3 % (42.8-82.8); PLATELET COUNT 261 10^3/uL (134-434); RBC 5.64 M/mm3 (3.60-5.2); RDW 14.4 % (11.6-15.6); WHITE BLOOD COUNT 7.3 K/mm3 (4.0-10.0)
[2023-07-28 08:34] LABS: ALBUMIN 3.2 g/dl (3.4-5.0); BLOOD UREA NITROGEN 21.9 mg/dL (7-18)
[2023-07-28 08:37] LABS: CREATININE 1.1 mg/dL (0.55-1.3)
[2023-07-28 08:39] LABS: BILIRUBIN,TOTAL 0.6 mg/dL (0.2-1); TOT PROT 7.2 g/dl (6.4-8.2)
[2023-07-28] MEDS: metoPROLOL SUCCINATE 25 MG TAB.SR.24H (FP) PO SCH (10:05)
[2023-07-28] MEDS: LACOSAMIDE 50 MG TABLET PO SCH ×2 (10:05→21:15)
[2023-07-28] MEDS: ENOXAPARIN NA (PORCINE) 40 MG/0.4 ML DISP.SYRIN SQ SCH (10:05)
[2023-07-28] MEDS: amLODIPine BESYLATE 2.5 MG TABLET (FP) PO SCH (10:05)
[2023-07-28] MEDS: levETIRAcetam 500 MG TABLET (FP) PO SCH ×2 (10:05→21:15)
[2023-07-28] MEDS: BACITRACIN ZINC 15 GM TUBE TOPICAL OINTMENT TP SCH ×2 (10:05→21:16)
[2023-07-28] MEDS: cloBAZam 10 MG TABLET PO SCH (10:05)
[2023-07-28] MEDS: REMDESIVIR 100 MG in SODIUM CHLORIDE 230 ML IVPB SCH (13:36)
[2023-07-29] MEDS: ENOXAPARIN NA (PORCINE) 40 MG/0.4 ML DISP.SYRIN SQ SCH (10:10)
[2023-07-29] MEDS: LACOSAMIDE 50 MG TABLET PO SCH ×2 (10:10→22:19)
[2023-07-29] MEDS: cloBAZam 10 MG TABLET PO SCH (10:10)
[2023-07-29] MEDS: amLODIPine BESYLATE 2.5 MG TABLET (FP) PO SCH (10:10)
[2023-07-29] MEDS: BACITRACIN ZINC 15 GM TUBE TOPICAL OINTMENT TP SCH ×2 (10:10→22:22)
[2023-07-29] MEDS: metoPROLOL SUCCINATE 25 MG TAB.SR.24H (FP) PO SCH (10:10)
[2023-07-29] MEDS: levETIRAcetam 500 MG TABLET (FP) PO SCH ×2 (10:10→22:19)
[2023-07-30] MEDS: levETIRAcetam 500 MG TABLET (FP) PO SCH ×2 (10:33→21:03)
[2023-07-30] MEDS: ENOXAPARIN NA (PORCINE) 40 MG/0.4 ML DISP.SYRIN SQ SCH (10:33)
[2023-07-30] MEDS: LACOSAMIDE 50 MG TABLET PO SCH ×2 (10:33→21:03)
[2023-07-30] MEDS: amLODIPine BESYLATE 2.5 MG TABLET (FP) PO SCH (10:34)
[2023-07-30] MEDS: metoPROLOL SUCCINATE 25 MG TAB.SR.24H (FP) PO SCH (10:34)
[2023-07-30] MEDS: BACITRACIN ZINC 15 GM TUBE TOPICAL OINTMENT TP SCH ×2 (10:34→21:03)
[2023-07-30] MEDS: cloBAZam 10 MG TABLET PO SCH (10:34)
[2023-07-31] MEDS: ENOXAPARIN NA (PORCINE) 40 MG/0.4 ML DISP.SYRIN SQ SCH (09:22)
[2023-07-31] MEDS: BACITRACIN ZINC 15 GM TUBE TOPICAL OINTMENT TP SCH ×2 (09:23→22:03)
[2023-07-31] MEDS: amLODIPine BESYLATE 2.5 MG TABLET (FP) PO SCH (09:27)
[2023-07-31] MEDS: cloBAZam 10 MG TABLET PO SCH (09:27)
[2023-07-31] MEDS: LACOSAMIDE 50 MG TABLET PO SCH ×2 (09:27→22:03)
[2023-07-31] MEDS: metoPROLOL SUCCINATE 25 MG TAB.SR.24H (FP) PO SCH (09:28)
[2023-07-31] MEDS: levETIRAcetam 500 MG TABLET (FP) PO SCH ×2 (09:28→22:03)
[2023-08-01] MEDS: BACITRACIN ZINC 15 GM TUBE TOPICAL OINTMENT TP SCH (11:50)
[2023-08-01] MEDS: LACOSAMIDE 50 MG TABLET PO SCH (11:50)
[2023-08-01] MEDS: metoPROLOL SUCCINATE 25 MG TAB.SR.24H (FP) PO SCH (11:50)
[2023-08-01] MEDS: levETIRAcetam 500 MG TABLET (FP) PO SCH (11:50)
[2023-08-01] MEDS: amLODIPine BESYLATE 2.5 MG TABLET (FP) PO SCH (11:51)
[2023-08-01] MEDS ORDERED: cloBAZam 10 MG TABLET PO SCH (15:15)
[2023-08-01 18:37] VITALS: BP 95/56; PULSE 89; TEMP 97.8
[2023-08-01 18:41] VITALS: RESP 18
== END 2023-08-01 19:06 | disposition short-term general hospital (02) | DRG 53 ==
LOC: JER 19:56 → JERBED 07-21 01:34 → J6S 07-21 19:39 → JICU 07-23 19:48 → J4S 07-24 21:07
PROVIDERS: ADMIT Internal Medicine; ATTEND Internal Medicine
PROC: XW033E5 Introduction of Remdesivir Anti-infective into Peripheral Vein, Percutaneous Approach, New Technology Group 5 (ICD-10-PCS; principal; 2023-07-23)
DX: R56.9 Unspecified convulsions (principal); U07.1 COVID-19; G91.9 Hydrocephalus, unspecified; D72.829 Elevated white blood cell count, unspecified; F70 Mild intellectual disabilities; I10 Essential (primary) hypertension
CPT/HCPCS: 0241U-QW; 36415; 70450-TC; 71045-TC-FY; 80048; 80053; 81003; 82962; 83735; 84100; 84703; 85025; 85027; 87040; 87086; 87635; 93005; 93010; 99285-25; C9399

== ENCOUNTER 2024-03-29 23:58 | Emergency (ER) | payer OTHER ==
[2024-03-30 00:26] VITALS: BP 117/78; PULSE 64; RESP 18; TEMP 98.1; BMI 32.9
[2024-03-30 01:17] LABS: POTASSIUM 4.5 mmol/L (3.5-5.1)
[2024-03-30 01:19] LABS: ALBUMIN 3.6 g/dl (3.4-5.0); BLOOD UREA NITROGEN 12.4 mg/dL (7-18)
[2024-03-30 01:23] LABS: CREATININE 0.9 mg/dL (0.55-1.3)
[2024-03-30 01:24] LABS: TOT PROT 7.7 g/dl (6.4-8.2)
[2024-03-30 01:25] LABS: BILIRUBIN,TOTAL 0.4 mg/dL (0.2-1)
[2024-03-30 01:51] LABS: BASO % 0.1 % (0-2.0); EOS % 0.1 % (0-4.5); HEMATOCRIT 41.7 % (32.4-45.2); HEMOGLOBIN 13.5 GM/dL (10.7-15.3); LYMPH % 50.5 % (8-40); MCH 28.2 pg (25.7-33.7); MCHC 32.4 g/dl (32.0-36.0); MEAN CELL VOLUME 86.9 fl (80-96); MEAN PLT VOLUME 9.2 fl (7.5-11.1); MONO % 13.3 % (3.8-10.2); PLATELET COUNT 225 10^3/uL (134-434); RBC 4.79 M/mm3 (3.60-5.2); RDW 14.3 % (11.6-15.6); WHITE BLOOD COUNT 6.1 K/mm3 (4.0-10.0)
== END 2024-03-30 02:50 | disposition home or self-care (01) ==
LOC: JER 23:58
DX: G40.909 Epilepsy, unspecified, not intractable, without status epilepticus (principal)
CPT/HCPCS: 36415; 71045-TC-FY; 80053; 80177; 83605; 84703; 85025; 99284-25; G0480

== ENCOUNTER 2024-07-01 19:53 | Emergency (ER) | payer OTHER ==
[2024-07-01 20:06] VITALS: BMI 35.4
[2024-07-01 23:33] LABS: BASO % 1.6 % (0-2.0); EOS % 0.1 % (0-4.5); HEMATOCRIT 40.3 % (32.4-45.2); HEMOGLOBIN 13.2 GM/dL (10.7-15.3); MCH 28.2 pg (25.7-33.7); MCHC 32.8 g/dl (32.0-36.0); MEAN PLT VOLUME 9.1 fl (7.5-11.1); MONO % 9.9 % (3.8-10.2); NEUT % 48.4 % (42.8-82.8); PLATELET COUNT 255 10^3/uL (134-434); RBC 4.68 M/mm3 (3.60-5.2); RDW 14.5 % (11.6-15.6)
[2024-07-01 23:53] LABS: POTASSIUM 4.2 mmol/L (3.5-5.1)
[2024-07-01 23:56] LABS: ALBUMIN 3.5 g/dl (3.4-5.0); BLOOD UREA NITROGEN 20.8 mg/dL (7-18); CALCIUM 9.5 mg/dL (8.5-10.1)
[2024-07-02 00:01] LABS: BILIRUBIN,TOTAL 0.2 mg/dL (0.2-1); TOT PROT 7.6 g/dl (6.4-8.2)
[2024-07-02 01:03] LABS: HIV INTERPRETATION NEGATIVE (NEGATIVE)
[2024-07-02 01:24] VITALS: PULSE 63; RESP 16; TEMP 97.4
[2024-07-02 01:26] VITALS: BP 125/91
== END 2024-07-02 02:44 | disposition home or self-care (01) ==
LOC: JER 19:53
DX: Z04.3 Encounter for examination and observation following other accident (principal)
CPT/HCPCS: 0241U-QW; 36415; 80053; 80177; 82550; 83605; 85025; 86803; 87389; 93005; 93010; 99284-25; G0480

== ENCOUNTER 2025-03-13 21:36 | Observation (INO) | payer OTHER ==
[2025-03-13 23:59] LABS: ABSOLUTE IMMATURE GRANULOCYTES 0.06 x10^3/uL (0.0-0.031); BASOPHILS # 0.01 x10^3/uL (0.01-0.08); HEMATOCRIT 42.2 % (34.1-44.9); HEMOGLOBIN 13.7 g/dL (11.2-15.7); MCHC 32.5 g/dl (32.2-35.5); MEAN PLT VOLUME 11.2 fl (9.4-12.3); MONOCYTE % 10.5 % (4.7-12.5); PLATELET COUNT 258 x10^3/uL (182-369); RDW 13.3 % (12.2-17.1)
[2025-03-14] MEDS ORDERED: ACETAMINOPHEN INJECTION 100 ML ONE (00:27)
[2025-03-14 00:29] LABS: POTASSIUM 4.1 mmol/L (3.5-5.1)
[2025-03-14 00:32] LABS: ALBUMIN 3.4 g/dl (3.4-5.0); BLOOD UREA NITROGEN 17.3 mg/dL (7-18)
[2025-03-14] MEDS: ACETAMINOPHEN 1000 MG/100 ML BAG IVPB ONE (00:33)
[2025-03-14 00:36] LABS: BILIRUBIN,TOTAL 0.2 mg/dL (0.2-1); TOT PROT 7.4 g/dl (6.4-8.2)
[2025-03-14 01:01] LABS: PH,URINE 5.5 (5.0-8.0); URINE APPEARANCE CLEAR; URINE BILIRUBIN NEGATIVE (NEGATIVE); URINE COLOR YELLOW; URINE GLUCOSE (UA) NEGATIVE (NEGATIVE); URINE KETONE NEGATIVE (NEGATIVE); URINE LEUK ESTERASE NEGATIVE (NEGATIVE); URINE NITRITE NEGATIVE (NEGATIVE); URINE PROTEIN NEGATIVE (NEGATIVE)
[2025-03-14] MEDS ORDERED: diazePAM CARPU-JECT 10 MG/2 ML DISP.SYRIN ONE (01:18)
[2025-03-14] MEDS: diazePAM CARPU-JECT 10 MG/2 ML DISP.SYRIN IVPUSH ONE (01:30)
[2025-03-14] MEDS: levETIRAcetam 500 MG TABLET (FP) PO SCH (06:50)
[2025-03-14] MEDS: LACOSAMIDE 50 MG TABLET PO SCH (09:44)
[2025-03-14] MEDS: ENOXAPARIN NA (PORCINE) 40 MG/0.4 ML DISP.SYRIN SQ SCH (09:44)
[2025-03-14] MEDS: CYANOCOBALAMIN 1,000 MCG TABLET (FP) PO SCH (09:44)
[2025-03-14 11:20] LABS: HEMATOCRIT 44.9 % (34.1-44.9); HEMOGLOBIN 14.5 g/dL (11.2-15.7); MCHC 32.3 g/dl (32.2-35.5); MEAN CELL VOLUME 86.3 fl (79.4-94.8); MEAN PLT VOLUME 11.6 fl (9.4-12.3); PLATELET COUNT 259 x10^3/uL (182-369); RDW 13.1 % (12.2-17.1)
[2025-03-14 11:40] VITALS: BMI 32.8
[2025-03-14] MEDS: ACETAMINOPHEN 1000 MG/100 ML BAG IVPB PRN (11:42)
[2025-03-14 12:09] LABS: ALBUMIN 3.4 g/dl (3.4-5.0); BLOOD UREA NITROGEN 14.9 mg/dL (7-18); CALCIUM 9.2 mg/dL (8.5-10.1); POTASSIUM 3.7 mmol/L (3.5-5.1)
[2025-03-14 12:15] LABS: BILIRUBIN,TOTAL 0.4 mg/dL (0.2-1); PHOSPHOROUS 2.9 mg/dL (2.5-4.9); TOT PROT 7.4 g/dl (6.4-8.2)
[2025-03-14] MEDS: levETIRAcetam 250 MG TABLET PO SCH (21:13)
[2025-03-14] MEDS: LACOSAMIDE 200 MG TABLET PO SCH (21:13)
[2025-03-14] MEDS: MELATONIN 1 MG TABLET PO SCH (21:13)
[2025-03-15] MEDS: diazePAM CARPU-JECT 10 MG/2 ML DISP.SYRIN IVPUSH PRN (17:41)
[2025-03-15] MEDS: ACETAMINOPHEN 325 MG TABLET (FP) PO PRN (18:03)
[2025-03-16] MEDS: cloBAZam 10 MG TABLET PO SCH (08:40)
[2025-03-16] MEDS: levETIRAcetam 500 MG TABLET (FP) PO SCH (21:19)
[2025-03-17 09:12] LABS: ABSOLUTE IMMATURE GRANULOCYTES 0.07 x10^3/uL (0.0-0.031); BASOPHILS # 0.01 x10^3/uL (0.01-0.08); HEMATOCRIT 43.8 % (34.1-44.9); MEAN CELL VOLUME 87.6 fl (79.4-94.8); MEAN PLT VOLUME 11.4 fl (9.4-12.3); MONOCYTE % 9.7 % (4.7-12.5); PLATELET COUNT 236 x10^3/uL (182-369); RDW 13.5 % (12.2-17.1)
[2025-03-17 09:37] LABS: POTASSIUM 4.1 mmol/L (3.5-5.1)
[2025-03-17 09:45] LABS: CALCIUM 9.4 mg/dL (8.5-10.1)
[2025-03-17 09:46] LABS: ALBUMIN 3.1 g/dl (3.4-5.0); BLOOD UREA NITROGEN 16.7 mg/dL (7-18)
[2025-03-17 09:49] LABS: CREATININE 1.1 mg/dL (0.55-1.3)
[2025-03-17 09:50] LABS: BILIRUBIN,TOTAL 0.2 mg/dL (0.2-1); TOT PROT 6.8 g/dl (6.4-8.2)
[2025-03-17] MEDS: SENNOSIDES 8.6MG TABLET (FP) PO PRN (21:21)
[2025-03-17] MEDS: cloBAZam 10 MG TABLET PO ONE (22:10)
[2025-03-18] MEDS: cloBAZam 10 MG TABLET PO SCH (10:22)
[2025-03-19 08:37] LABS: ABSOLUTE IMMATURE GRANULOCYTES 0.06 x10^3/uL (0.0-0.031); BASOPHILS # 0.01 x10^3/uL (0.01-0.08); HEMATOCRIT 42.3 % (34.1-44.9); HEMOGLOBIN 13.3 g/dL (11.2-15.7); MCHC 31.4 g/dl (32.2-35.5); MEAN CELL VOLUME 88.5 fl (79.4-94.8); MEAN PLT VOLUME 11.2 fl (9.4-12.3); MONOCYTE % 10.6 % (4.7-12.5); PLATELET COUNT 248 x10^3/uL (182-369); RDW 13.7 % (12.2-17.1)
[2025-03-19 08:49] LABS: POTASSIUM 4.1 mmol/L (3.5-5.1)
[2025-03-19 08:56] LABS: ALBUMIN 3.1 g/dl (3.4-5.0)
[2025-03-19 08:57] LABS: BLOOD UREA NITROGEN 18.5 mg/dL (7-18); CALCIUM 9.5 mg/dL (8.5-10.1)
[2025-03-19 09:00] LABS: CREATININE 1.1 mg/dL (0.55-1.3)
[2025-03-19 09:01] LABS: BILIRUBIN,TOTAL 0.3 mg/dL (0.2-1); TOT PROT 6.9 g/dl (6.4-8.2)
[2025-03-19] MEDS: POLYETHYLENE GLYCOL (HEALTHYLAX) 3350 17 GM PACKET PO SCH (14:35)
[2025-03-19 14:53] VITALS: RESP 18
[2025-03-21 14:08] VITALS: BP 119/89; PULSE 73; TEMP 97.9
== END 2025-03-21 16:23 | disposition home health service (06) ==
LOC: JER 21:36 → JERBED 03-14 01:14 → J5S 03-14 06:01
PROVIDERS: ADMIT Hospitalist; ATTEND Internal Medicine
PROC: 3E033NZ Introduction of Analgesics, Hypnotics, Sedatives into Peripheral Vein, Percutaneous Approach (ICD-10-PCS; principal; 2025-03-14)
PROC: 3E033GC Introduction of Other Therapeutic Substance into Peripheral Vein, Percutaneous Approach (ICD-10-PCS; 2025-03-14)
PROC: 3E023GC Introduction of Other Therapeutic Substance into Muscle, Percutaneous Approach (ICD-10-PCS; 2025-03-14)
DX: G40.909 Epilepsy, unspecified, not intractable, without status epilepticus (principal); G80.9 Cerebral palsy, unspecified; G91.2 (Idiopathic) normal pressure hydrocephalus; R62.50 Unspecified lack of expected normal physiological development in childhood; F89 Unspecified disorder of psychological development; R29.6 Repeated falls
CPT/HCPCS: 0241U-QW; 36415; 70450-TC; 71045-TC-FY; 80053; 80175; 80177; 81003; 82962; 83735; 84100; 84703; 85025; 85027; 87086; 93005; 93010; 96372; 96374; 96375; 96376; 97116-GP; 99285-25; G0378; G0480